=== PATIENT | male | born 1950 | race Hispanic/Latino ===

== ENCOUNTER 2018-07-09 12:07 | Day surgery (SDC) | payer MEDICARE ==
[2018-07-08 13:02] VITALS: BMI 24.2
[2018-07-09 13:04] VITALS: TEMP 98
[2018-07-09 13:14] LABS: BLOOD UREA NITROGEN 10 mg/dL (7-21); CALCIUM 9.5 mg/dL (8.4-10.5); GFR NON-AFRICAN AMERICAN > 60
[2018-07-09 13:23] LABS: PARTIAL THROMBOPLASTIN TIME 32.5 Seconds (25.1-36.5); PROTHROMBIN TIME 11.5 SECONDS (9.4-12.5)
[2018-07-09 13:25] LABS: GRAN % 56.1 % (50.0-68.0); HEMOGLOBIN 14.7 g/dL (14.0-18.0); MEAN CELL VOLUME 92.4 fl (80.0-105.0); MEAN CORPUSCULAR HEMOGLOBIN 32.1 pg (25.0-35.0); MEAN CORPUSCULAR HGB CONC 34.8 g/dl (31.0-37.0); MEAN PLATELET VOLUME 9.2 fl (7.0-11.0); RBC 4.58 10^6/uL (3.5-6.1); RED CELL DISTRIBUTION WIDTH 12.1 % (11.5-14.5); WHITE BLOOD COUNT 8.1 10^3/ul (4.5-11.0)
[2018-07-09 13:26] LABS: BASO # 0.02 K/mm3 (0.0-2.0); BASO % 0.2 % (0.0-3.0); EOS # 0.2 (0.0-0.7); EOS % 2.2 % (1.5-5.0); GRAN # 4.56 (1.4-6.5); LYMPH # 2.8 (1.2-3.4); LYMPH % 34.4 % (22.0-35.0); MONO # 0.6 (0.1-0.6); MONO % 7.1 % (1.0-6.0)
[2018-07-09] MEDS ORDERED: Lidocaine 1% Inj (20ml) ONE (13:42)
[2018-07-09] MEDS ORDERED: Midazolam 2 MG/2 ML VIAL ONE ×2 (13:42→13:54)
[2018-07-09] MEDS ORDERED: Oxycodone/Acetaminophen 5/325 mg Tab PO PRN (14:07)
[2018-07-09] MEDS ORDERED: Sodium Chloride 0.45% 1,000 ML IV SCH (14:15)
[2018-07-09] MEDS ORDERED: Midazolam 2 MG/2 ML VIAL IVP ONE (14:44)
[2018-07-09 15:18] VITALS: RESP 18; O2SAT 96
--- NOTE | 2018-07-09 15:29 | RAD ---
Date of service: 07/09/2018 HISTORY: RLL lung bx COMPARISON: No prior. FINDINGS: LUNGS: No active pulmonary disease. PLEURA: No significant pleural effusion identified, no pneumothorax apparent. CARDIOVASCULAR: Normal. OSSEOUS STRUCTURES: Sternal wires VISUALIZED UPPER ABDOMEN: Normal. OTHER FINDINGS: None. IMPRESSION: No active disease.
[2018-07-09 16:06] VITALS: BP 144/70; PULSE 76
--- NOTE | 2018-07-09 18:42 | CT ---
PROCEDURE: CT guided right lower lobe lung biopsy. HISTORY: Smoker. 2.1 cm noncalcified spiculated right lower lobe lung mass. Evaluate for malignancy. PHYSICIAN(S): Silas Flores MD. TECHNIQUE: The relative risks and indications of the procedure were explained to the patient and consent obtained. The patient was placed prone on the CT scanner and preliminary images through the lower lungs obtained. Conscious sedation and monitoring were provided throughout the procedure by a nurse. A 2.1 cm spiculated mass is noted in the right lower lobe medially. A right posterior approach was selected and the area prepped and draped in the usual sterile fashion. 1% Xylocaine was used to anesthetize the skin and soft tissues. A 18 gauge guiding needle was advanced into the 2.1 cm right lower lobe lung mass. Its position was confirmed with CT. Using coaxial technique, multiple core biopsies were obtained. The postprocedure images show no evidence of large pneumothorax or significant hemorrhage.. IMPRESSION: 1. CT-guided right lower lobe lung biopsy as described above.
== END 2018-07-09 16:05 | disposition home or self-care (01) ==
LOC: SDS 12:07
PROVIDERS: ATTEND Radiology Vascular & Interventional Radiology
DX: C7A.090 Malignant carcinoid tumor of the bronchus and lung (principal); I10 Essential (primary) hypertension; I25.10 Atherosclerotic heart disease of native coronary artery without angina pectoris; J43.9 Emphysema, unspecified; E11.9 Type 2 diabetes mellitus without complications; Z88.0 Allergy status to penicillin; Z91.040 Latex allergy status
CPT/HCPCS: 32405; 36415; 71045; 77012; 80048; 85025; 85610; 85730; 88305; 99152; J2250; J2405; J3010; J7030

== ENCOUNTER 2018-11-29 17:38 | Inpatient (IN) | payer MEDICARE ==
[2018-11-29] MEDS ORDERED: Sodium Chloride 0.9% 1,000 ML IV STA (18:13)
--- NOTE | 2018-11-29 18:37 | ED PDOC ---
Arrival/HPI - General Chief Complaint: Dizziness/Lightheaded Time Seen by Provider: 11/29/18 17:46 Historian: Patient - History of Present Illness Narrative History of Present Illness (Text): 11/29/18 18:23 68 yo M reports with past medical history of diabetes, high cholesterol, lung cancer s/p lobectomy, on chemo, quadruple bypass, and left carotid stent presents to the emergency room having having a near syncopal episode at home. Patient states that he was sitting on a chair when he started feeling clammy and diaphoretic, he states that he went to stand up and felt lightheaded, he notified his who then checked his blood pressure several times, states that his blood pressure was 66/33, his family called the ambulance. Otherwise: (-) trauma, (-) headache, (-) tinnitus, (-) hearing loss, (-) chest pain, (-) dyspnea, (-) fever, (-) URI, (-) abdominal pain, (-) vomiting, (-) diarrhea, (-) syncope, (-) GI bleeding. PMD Liliana FritzCamanche) Cardio Sudheer Past Medical History - Provider Review Nursing Documentation Reviewed: Yes - Infectious Disease Hx of Infectious Diseases: None - Tetanus Immunization Tetanus Immunization: Unknown - Cardiac Hx Pacemaker: No - Neurological Hx Paralysis: No - Endocrine/Metabolic Hx Endocrine Disorders: (DM) - Hematological/Oncological Hx Blood Transfusions: No Hx Blood Transfusion Reaction: No - Musculoskeletal/Rheumatological Hx Musculoskeletal Disorders: No - Gastrointestinal Hx Diverticulitis: Yes - Psychiatric Hx Emotional Abuse: No Hx Physical Abuse: No Hx Substance Use: No - Surgical History Hx Cardiac Catheterization: Yes Hx Cholecystectomy: Yes - Anesthesia Hx Anesthesia: Yes Hx Anesthesia Reactions: No Hx Malignant Hyperthermia: No - Suicidal Assessment Feels Threatened In Home Enviroment: No Family/Social History - Physician Review Nursing Documentation Reviewed: Yes Family/Social History: No Known Family HX, Unknown Family HX Smoking Status: ocassional Hx Alcohol Use: No Hx Substance Use: No Hx Substance Use Treatment: Yes (occasional) Allergies/Home Meds Allergies/Adverse Reactions: Allergies latex Allergy (Severe, Verified 08/15/16 08:54) ANAPHYLAXIS Penicillins Allergy (Severe, Verified 08/15/16 08:54) ANAPHYLAXIS GELS USED FOR PROCEDURES Allergy (Severe, Uncoded 07/08/18 13:04) RASH/SWELLING METAL Allergy (Intermediate, Uncoded 08/15/16 08:55) SWELLING, VARIOUS REACTIONS Home Medications: Home Meds Medication Instructions Recorded Confirmed Metformin HCl [Metformin] 1,000 mg PO BID 09/07/13 07/09/18 Aspirin [Ecotrin] 81 mg PO QAM 08/15/16 07/09/18 Clopidogrel [Plavix] 75 mg PO QAM 08/15/16 07/09/18 Simvastatin 80 mg PO QAM 08/15/16 07/09/18 Review of Systems - Review of Systems Constitutional: absent: Fatigue, Fevers Respiratory: absent: SOB, Cough Cardiovascular: absent: Chest Pain, Palpitations Gastrointestinal: absent: Abdominal Pain, Diarrhea, Nausea, Vomiting Genitourinary Male: absent: Dysuria, Frequency, Hematuria Musculoskeletal: absent: Arthralgias, Neck Pain Skin: absent: Rash, Pruritis Neurological: Dizziness. absent: Headache Physical Exam - Physical Exam Narrative Physical Exam (Text): 11/29/18 18:38 GENERAL APPEARANCE: Patient is awake, alert, oriented x 3, in no acute distress. SKIN: Warm, dry; (-) cyanosis. HEAD: (-) scalp swelling or tenderness. EYES: (-) conjunctival pallor. ENMT: TMs normal. Mucous membranes moist. NECK: (-) tenderness, (-) stiffness, (-) lymphadenopathy. Carotids: (-) bruit. CHEST AND RESPIRATORY: (-) rales, (-) rhonchi, (-) wheezes; breath sounds equal bilaterally. HEART AND CARDIOVASCULAR: (-) irregularity; (-) murmur, (-) gallop. ABDOMEN AND GI: Soft; (-) distention, (-) tenderness, (-) rebound, (-) guarding, (-) palpable masses, (-) flank tenderness. EXTREMITIES: (-) deformity; (+) 1+ pitting edema. Distal pulses: present. NEURO AND PSYCH: Mental status as above. marketing communications associate: (-) nystagmus; Pupils equal & reactive, EOMI, (-) facial asymmetry; (-) dysarthria; tongue and uvula midline. Strength symmetric. Vital Signs Temp Pulse Resp BP Pulse Ox 11/29/18 17:38 97.8 F 73 18 114/51 L 98 Medical Decision Making ED Course and Treatment: 11/29/18 18:40 Plan: -- Labs -- IV fluids -- Urinalysis -- EKG -- CXR -- Reassess and disposition -- CT head EKG: NSR at 76 bpm, (-) acute ST changes, as read by PA. CXR : +lobectomy to the RLL, otherwise NAD, as read by PA. Rapid flu : (-) UA : (-) infection Labs : wbc 52, trop (-), bnp nl, d-dimer (-), rest of the labs wnl. US doppler b/l LE : (-) DVT. On reevaluation, patient reports no headache, dizziness, CP, back pain or SOB. On exam, patient remains awake alert and oriented 3 in no acute distress. Diagnostic results d/w the patient and his . Repeat VS : P 70 BP 125/58 R 19 O2sat 98%RA. Case d/w Dr. Friedman, agrees with plan for observation with consults to Dr. rGegorio and Dr. Willard. 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 VENTRICLES: There is generalized parenchymal atrophy noted as demonstrated by symmetrical dilatation of ventricles and sulci. ORBITS: The orbits are unremarkable. SINUSES AND MASTOIDS: The paranasal sinuses and mastoid air cells are clear. BONES: No fracture. SOFT TISSUES: Unremarkable. MISCELLANEOUS: No acute intracranial pathology. IMPRESSION: 1. There is generalized parenchymal atrophy noted as demonstrated by symmetrical dilatation of ventricles and sulci. 2. 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 3. No acute intracranial pathology. Electronically signed on Nov 29, 2018 8:59:30 PM EST by: Boyd Blue M.D., CHERRY Certified By [facility] & [facility] Fellowship Trained MRI and CT Specialist Radiology Orders: 11/29/18 18:11 CHEST PORTABLE [RAD] Stat 11/29/18 18:13 HEAD W/O CONTRAST [CT] Stat Receiver Bulk System: Radiologist - Medication Orders Current Medication Orders: Sodium Chloride (Sodium Chloride 0.9%) 1,000 mls @ 500 mls/hr IV .Q2H STA Stop: 11/29/18 20:12 - PA / REGISTERED NURSE OBSTETRICS / Resident Statement /DO has reviewed & agrees with the documentation as recorded. Disposition/Present on Arrival - Present on Arrival Any Indicators Present on Arrival: No History of DVT/PE: No History of Uncontrolled Diabetes: No Urinary Catheter: No History of Decub. Ulcer: No History Surgical Site Infection Following: None - Disposition Have Diagnosis and Disposition been Completed?: Yes Diagnosis: Near syncope Disposition: HOSPITALIZED Disposition Time: 21:15 Patient Plan: Observation Patient Problems: Current Active Problems Problem Status Onset Near syncope Acute Condition: STABLE
[2018-11-29 19:38] LABS: ALB/GLOB RATIO 1.6 (1.1-1.8); ALBUMIN 3.8 g/dL (3.0-4.8); ALT/SGPT 27 U/L (7-56); AST/SGOT 17 U/L (17-59); BLOOD UREA NITROGEN 21 mg/dL (7-21); CALCIUM 9.1 mg/dL (8.4-10.5); GFR NON-AFRICAN AMERICAN > 60
[2018-11-29 19:41] LABS: BASO # 0.02 K/mm3 (0.0-2.0); HEMOGLOBIN 10.2 g/dL (14.0-18.0); LYMPH # 1.6 (1.2-3.4); MEAN CORPUSCULAR HEMOGLOBIN 32.4 pg (25.0-35.0); MEAN CORPUSCULAR HGB CONC 34.5 g/dl (31.0-37.0); MEAN PLATELET VOLUME 9.1 fl (7.0-11.0); MONO # 0.2 (0.1-0.6); MONO % 0.3 % (1.0-6.0); PLATELET COUNT 244 10^3/uL (120.0-450.0); RBC 3.15 10^6/uL (3.5-6.1); RED CELL DISTRIBUTION WIDTH 14.5 % (11.5-14.5)
[2018-11-29 19:44] LABS: WHITE BLOOD COUNT 52.6 10^3/uL (4.5-11.0)
[2018-11-29 19:45] LABS: INR 1.1; PARTIAL THROMBOPLASTIN TIME 26.2 Seconds (26.9-38.3); PROTHROMBIN TIME 12.2 SECONDS (9.4-12.5)
[2018-11-29 19:50] LABS: B-TYPE NATRIURETIC PEPTIDE 316 pg/mL (0-450); TROPONIN I < 0.01 ng/mL
[2018-11-29 20:28] LABS: BAND 2 % (0-2); HYPOCHROMIA 2+; LYMPHOCYTE 3 % (22.0-35.0); NEUTROPHIL 95 % (50.0-70.0); PLATELET ESTIMATE NORMAL (NORMAL)
[2018-11-29 20:29] LABS: ROULEAU 2+; TARGET CELLS SLIGHT; TOXIC GRANULATION 2+
[2018-11-29 21:17] LABS: URINE BILIRUBIN NEGATIVE (NEGATIVE); URINE BLOOD NEGATIVE (NEGATIVE); URINE GLUCOSE (UA) 250 mg/dL (NEGATIVE); URINE LEUKOCYTE ESTERASE NEGATIVE Leu/uL (NEGATIVE); URINE PROTEIN TRACE mg/dL (<30 mg/dL); URINE UROBILINOGEN 0.2 E.U./dL (<1 E.U./dL)
[2018-11-29 21:20] LABS: URINE APPEARANCE CLEAR (CLEAR); URINE COLOR YELLOW (YELLOW)
--- NOTE | 2018-11-30 05:43 | CP.PCM.HP ---
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 Patient states that that at the time of the episode he was sitting in a chair when he started feeling very lightheaded, diaphoretic, and with cold sweats. He denied any LOC, fall, seizure-like activity. His checked the blood pressure at the time which was 66/33. At this time she called the ED. Patient denied any headache, dizziness, chest pain, palpitations, SOB, cough, abd pain, nausea, vomiting, bowel/bladder complaints, pain/swelling in his legs b/l. PMHx: CABG, DM2, HLD, small cell lung ca s/p lobectomy in August 2018, with 4 rounds of chemotherapy most recently received last , and left carotid stent PSurgHx: Lobectomy in August 2018, and CABG, and left carotid stent placement ALL: To latex and penicillin SocHx: Former heavy smoker, denies any drinking or recreational drug use; lives at home with and daughter; ambulates with no assistance and completes all ADLs FamHx: [place] in father; brother with CVA; sister with cancer [patient unsure of type] PMD: Condo Onc: Early ([place]) Cardio: Sudheer Present on Admission - Present on Admission Any Indicators Present on Admission: No Review of Systems - Review of Systems All systems: reviewed and no additional remarkable complaints except Review of Systems: as per HPI Past Patient History - Infectious Disease Hx of Infectious Diseases: None - Tetanus Immunizations Tetanus Immunization: Unknown - Past Social History Smoking Status: ocassional - CARDIAC Hx Pacemaker: No - NEUROLOGICAL Hx Paralysis: No - ENDOCRINE/METABOLIC Hx Endocrine Disorders: (DM) - HEMATOLOGICAL/ONCOLOGICAL Hx Blood Transfusions: No Hx Blood Transfusion Reaction: No - MUSCULOSKELETAL/RHEUMATOLOGICAL Hx Musculoskeletal Disorders: No - GASTROINTESTINAL Hx Diverticulitis: Yes - PSYCHIATRIC Hx Emotional Abuse: No Hx Physical Abuse: No Hx Substance Use: No - SURGICAL HISTORY Hx Cardiac Catheterization: Yes Hx Cholecystectomy: Yes - ANESTHESIA Hx Anesthesia: Yes Hx Anesthesia Reactions: No Hx Malignant Hyperthermia: No Meds Allergies/Adverse Reactions: Allergies Allergy/AdvReac Type Severity Reaction Status Date / Time latex Allergy Severe ANAPHYLAXIS Verified 08/15/16 08:54 Penicillins Allergy Severe ANAPHYLAXIS Verified 08/15/16 08:54 GELS USED FOR PROCEDURES Allergy Severe RASH/SWELLI Uncoded 07/08/18 13:04 NG METAL Allergy Intermediate SWELLING, Uncoded 08/15/16 08:55 VARIOUS REACTIONS Physical Exam - Constitutional Appears: Non-toxic, No Acute Distress - Head Exam Head Exam: ATRAUMATIC, NORMAL INSPECTION, NORMOCEPHALIC - Eye Exam Eye Exam: EOMI, Normal appearance. absent: Conjunctival injection, Scleral icterus - ENT Exam ENT Exam: Mucous Membranes Moist - Neck Exam Neck exam: Negative for: Lymphadenopathy - Respiratory Exam Respiratory Exam: Clear to Auscultation Bilateral, NORMAL BREATHING PATTERN. ab sent: Accessory Muscle Use, Rales, Rhonchi, Wheezes, Respiratory Distress Additional comments: port in L upper chest wall - Cardiovascular Exam Cardiovascular Exam: REGULAR RHYTHM, +S1, +S2 - GI/Abdominal Exam GI & Abdominal Exam: Normal Bowel Sounds, Soft. absent: Firm, Guarding, Rigid, Tenderness - Rectal Exam Rectal Exam: Deferred - Extremities Exam Extremities exam: Positive for: normal inspection, pedal pulses present. Negative for: pedal edema, tenderness - Back Exam Back exam: NORMAL INSPECTION. absent: rash noted - Neurological Exam Neurological exam: Alert, CN II-XII Intact, Oriented x3 - Psychiatric Exam Psychiatric exam: Normal Affect, Normal Mood - Skin Skin Exam: Dry, Intact, Normal Color Results - Vital Signs Recent Vital Signs: Last Vital Signs Temp 97.8 F 11/29/18 17:38 Pulse 69 11/30/18 05:11 Resp 16 11/30/18 05:11 BP 137/62 11/30/18 05:11 Pulse Ox 98 11/30/18 05:11 - Labs Result Diagrams: 11/30/18 07:00 11/30/18 07:00 Labs: Laboratory Results - last 24 hr 11/29/18 11/29/18 11/29/18 19:08 19:08 19:08 WBC 52.6 H* RBC 3.15 L Hgb 10.2 L D Hct 29.6 L MCV 94.0 MCH 32.4 MCHC 34.5 RDW 14.5 Plt Count 244 MPV 9.1 Neut % (Auto) 96.7 H Lymph % (Auto) 3.0 L [place] % (Auto) 0.3 L Eos % (Auto) 0.0 L Baso % (Auto) 0.0 Lymph # (Auto) 1.6 [place] # (Auto) 0.2 Eos # (Auto) 0.0 Baso # (Auto) 0.02 Absolute Neuts (auto) 50.77 H Neutrophils % (Manual) 95 H Band Neutrophils % 2 Lymphocytes % (Manual) 3 L Monocytes % (Manual) TEST NOT PERFORMED Toxic Granulation 2+ Platelet Evaluation Normal Hypochromasia 2+ Target Cells Slight Rouleaux 2+ PT 12.2 INR 1.10 APTT 26.2 L D-Dimer, Quantitative Sodium 134 Potassium 4.4 Chloride 102 Carbon Dioxide 23 Anion Gap 13 BUN 21 Creatinine 0.7 L Est GFR ( Amer) > 60 Est GFR (Non-Af Amer) > 60 Random Glucose 192 H Calcium 9.1 Magnesium 1.5 L Total Bilirubin 0.7 AST 17 ALT 27 Alkaline Phosphatase 62 Lactate Dehydrogenase 375 Total Creatine Kinase 23 L Troponin I < 0.01 NT-Pro-B Natriuret Pep 316 Total Protein 6.2 Albumin 3.8 Globulin 2.4 Albumin/Globulin Ratio 1.6 Urine Color Urine Appearance Urine pH Ur Specific [place] Urine Protein Urine Glucose (UA) Urine Ketones Urine Blood Urine Nitrate Urine Bilirubin Urine Urobilinogen Ur Leukocyte Esterase Urine RBC Urine WBC Ur Epithelial Cells Influenza Typ A,B (EIA) 11/29/18 11/29/18 11/29/18 19:08 20:35 21:30 WBC RBC Hgb Hct MCV MCH MCHC RDW Plt Count MPV Neut % (Auto) Lymph % (Auto) [place] % (Auto) Eos % (Auto) Baso % (Auto) Lymph # (Auto) [place] # (Auto) Eos # (Auto) Baso # (Auto) Absolute Neuts (auto) Neutrophils % (Manual) Band Neutrophils % Lymphocytes % (Manual) Monocytes % (Manual) Toxic Granulation Platelet Evaluation Hypochromasia Target Cells Rouleaux PT INR APTT D-Dimer, Quantitative 217 Sodium Potassium Chloride Carbon Dioxide Anion Gap BUN Creatinine Est GFR ( Amer) Est GFR (Non-Af Amer) Random Glucose Calcium Magnesium Total Bilirubin AST ALT Alkaline Phosphatase Lactate Dehydrogenase Total Creatine Kinase Troponin I NT-Pro-B Natriuret Pep Total Protein Albumin Globulin Albumin/Globulin Ratio Urine Color Yellow Urine Appearance Clear Urine pH 6.0 Ur Specific [place] >= 1.030 Urine Protein Trace H Urine Glucose (UA) 250 H Urine Ketones Negative Urine Blood Negative Urine Nitrate Negative Urine Bilirubin Negative Urine Urobilinogen 0.2 Ur Leukocyte Esterase Negative Urine RBC TEST NOT PERFORMED Urine WBC 2 - 5 Ur Epithelial Cells 6 - 8 H Influenza Typ A,B (EIA) Negative for flu a/b 11/29/18 22:25 WBC RBC Hgb Hct MCV MCH MCHC RDW Plt Count MPV Neut % (Auto) Lymph % (Auto) [place] % (Auto) Eos % (Auto) Baso % (Auto) Lymph # (Auto) [place] # (Auto) Eos # (Auto) Baso # (Auto) Absolute Neuts (auto) Neutrophils % (Manual) Band Neutrophils % Lymphocytes % (Manual) Monocytes % (Manual) Toxic Granulation Platelet Evaluation Hypochromasia Target Cells Rouleaux PT INR APTT D-Dimer, Quantitative Sodium Potassium Chloride Carbon Dioxide Anion Gap BUN Creatinine Est GFR ( Amer) Est GFR (Non-Af Amer) Random Glucose Calcium Magnesium Total Bilirubin AST ALT Alkaline Phosphatase Lactate Dehydrogenase Total Creatine Kinase Troponin I < 0.01 NT-Pro-B Natriuret Pep Total Protein Albumin Globulin Albumin/Globulin Ratio Urine Color Urine Appearance Urine pH Ur Specific [place] Urine Protein Urine Glucose (UA) Urine Ketones Urine Blood Urine Nitrate Urine Bilirubin Urine Urobilinogen Ur Leukocyte Esterase Urine RBC Urine WBC Ur Epithelial Cells Influenza Typ A,B (EIA) Assessment & Plan - Assessment and Plan (Free Text) Assessment: 1. Near syncopal episode 2. Marked leukocytosis 3. Normocytic anemia 4. CAD s/p CABG 5. HLD 6. DM2 7. Small cell lung ca s/p lobectomy on chemo 8. L cartoid A stent Plan: Patient admitted to [facility] for further management. Patient's head CT showed generalized parenchymal atrophy noted as demonstrated by symmetrical dilatation of ventricles and sulci and chronic periventricular and subcortical microvascular disease. Will f/u u/s carotids. U/S LE were done in the ER which were negative for DVT. Cardio and ID were consulted. Blood and urine cultures ordered to f/u. Patient's UA and flu were negative. CXR revealed small R effusions with mild basilar atelectasis. CT Abd/pelvis ordered to r/o intra-abd infx- will f/u. Echo ordered to r/o vegetations- will f/u. In light of anemia, patient has iron studies ordered- will f/u. Continue home meds ASA ,Plavix, lipitor, and toprol for CAD and HLD. Patient's home metformin on hold and patient on RISS low at this time. DVT ppx in place. Will continue to monitor patient at this time. Discussed with Dr. Elder Branham PGY3 <Malik Friedman S - Last Filed: 11/30/18 19:10> Results - Vital Signs Recent Vital Signs: Last Vital Signs Temp 98.0 F 11/30/18 16:20 Pulse 86 11/30/18 16:20 Resp 18 11/30/18 16:20 BP 138/77 11/30/18 16:20 Pulse Ox 100 11/30/18 16:20 - Labs Result Diagrams: 11/30/18 07:00 11/30/18 07:00 Labs: Laboratory Results - last 24 hr 11/29/18 11/29/18 11/29/18 19:08 19:08 19:08 WBC 52.6 H* RBC 3.15 L Hgb 10.2 L D Hct 29.6 L MCV 94.0 MCH 32.4 MCHC 34.5 RDW 14.5 Plt Count 244 MPV 9.1 Neut % (Auto) 96.7 H Lymph % (Auto) 3.0 L [place] % (Auto) 0.3 L Eos % (Auto) 0.0 L Baso % (Auto) 0.0 Lymph # (Auto) 1.6 [place] # (Auto) 0.2 Eos # (Auto) 0.0 Baso # (Auto) 0.02 Absolute Neuts (auto) 50.77 H Neutrophils % (Manual) 95 H Band Neutrophils % 2 Lymphocytes % (Manual) 3 L Monocytes % (Manual) TEST NOT PERFORMED Toxic Granulation 2+ Platelet Evaluation Normal Hypochromasia 2+ Target Cells Slight Rouleaux 2+ Retic Count PT 12.2 INR 1.10 APTT 26.2 L D-Dimer, Quantitative Sodium 134 Potassium 4.4 Chloride 102 Carbon Dioxide 23 Anion Gap 13 BUN 21 Creatinine 0.7 L Est GFR ( Amer) > 60 Est GFR (Non-Af Amer) > 60 POC Glucose (mg/dL) Random Glucose 192 H Hemoglobin A1c Calcium 9.1 Phosphorus Magnesium 1.5 L Iron TIBC % Saturation Transferrin Ferritin Total Bilirubin 0.7 AST 17 ALT 27 Alkaline Phosphatase 62 Lactate Dehydrogenase 375 Total Creatine Kinase 23 L Troponin I < 0.01 NT-Pro-B Natriuret Pep 316 Total Protein 6.2 Albumin 3.8 Globulin 2.4 Albumin/Globulin Ratio 1.6 Triglycerides Cholesterol LDL Cholesterol Direct HDL Cholesterol Vitamin B12 Folate Free T4 TSH 3rd Generation Urine Color Urine Appearance Urine pH Ur Specific [place] Urine Protein Urine Glucose (UA) Urine Ketones Urine Blood Urine Nitrate Urine Bilirubin Urine Urobilinogen Ur Leukocyte Esterase Urine RBC Urine WBC Ur Epithelial Cells Influenza Typ A,B (EIA) 11/29/18 11/29/18 11/29/18 19:08 20:35 21:30 WBC RBC Hgb Hct MCV MCH MCHC RDW Plt Count MPV Neut % (Auto) Lymph % (Auto) [place] % (Auto) Eos % (Auto) Baso % (Auto) Lymph # (Auto) [place] # (Auto) Eos # (Auto) Baso # (Auto) Absolute Neuts (auto) Neutrophils % (Manual) Band Neutrophils % Lymphocytes % (Manual) Monocytes % (Manual) Toxic Granulation Platelet Evaluation Hypochromasia Target Cells Rouleaux Retic Count PT INR APTT D-Dimer, Quantitative 217 Sodium Potassium Chloride Carbon Dioxide Anion Gap BUN Creatinine Est GFR ( Amer) Est GFR (Non-Af Amer) POC Glucose (mg/dL) Random Glucose Hemoglobin A1c Calcium Phosphorus Magnesium Iron TIBC % Saturation Transferrin Ferritin Total Bilirubin AST ALT Alkaline Phosphatase Lactate Dehydrogenase Total Creatine Kinase Troponin I NT-Pro-B Natriuret Pep Total Protein Albumin Globulin Albumin/Globulin Ratio Triglycerides Cholesterol LDL Cholesterol Direct HDL Cholesterol Vitamin B12 Folate Free T4 TSH 3rd Generation Urine Color Yellow Urine Appearance Clear Urine pH 6.0 Ur Specific [place] >= 1.030 Urine Protein Trace H Urine Glucose (UA) 250 H Urine Ketones Negative Urine Blood Negative Urine Nitrate Negative Urine Bilirubin Negative Urine Urobilinogen 0.2 Ur Leukocyte Esterase Negative Urine RBC TEST NOT PERFORMED Urine WBC 2 - 5 Ur Epithelial Cells 6 - 8 H Influenza Typ A,B (EIA) Negative for flu a/b 11/29/18 11/30/18 11/30/18 22:25 07:00 07:00 WBC 51.3 H* RBC 3.31 L Hgb 10.6 L Hct 31.3 L MCV 94.6 MCH 32.0 MCHC 33.9 RDW 14.6 H Plt Count 204 MPV 9.1 Neut % (Auto) Lymph % (Auto) [place] % (Auto) Eos % (Auto) Baso % (Auto) Lymph # (Auto) [place] # (Auto) Eos # (Auto) Baso # (Auto) Absolute Neuts (auto) Neutrophils % (Manual) Band Neutrophils % Lymphocytes % (Manual) Monocytes % (Manual) Toxic Granulation Platelet Evaluation Hypochromasia Target Cells Rouleaux Retic Count PT INR APTT D-Dimer, Quantitative Sodium 138 Potassium 4.5 Chloride 104 Carbon Dioxide 26 Anion Gap 12 BUN 18 Creatinine 0.6 L Est GFR ( Amer) > 60 Est GFR (Non-Af Amer) > 60 POC Glucose (mg/dL) Random Glucose 158 H Hemoglobin A1c Calcium 9.3 Phosphorus 3.5 Magnesium 1.6 L Iron TIBC % Saturation Transferrin Ferritin Total Bilirubin 0.5 AST 18 ALT 19 Alkaline Phosphatase 67 Lactate Dehydrogenase Total Creatine Kinase Troponin I < 0.01 NT-Pro-B Natriuret Pep Total Protein 6.5 Albumin 3.9 Globulin 2.6 Albumin/Globulin Ratio 1.5 Triglycerides Cholesterol LDL Cholesterol Direct HDL Cholesterol Vitamin B12 Folate Free T4 TSH 3rd Generation Urine Color Urine Appearance Urine pH Ur Specific [place] Urine Protein Urine Glucose (UA) Urine Ketones Urine Blood Urine Nitrate Urine Bilirubin Urine Urobilinogen Ur Leukocyte Esterase Urine RBC Urine WBC Ur Epithelial Cells Influenza Typ A,B (EIA) 11/30/18 11/30/18 11/30/18 07:00 07:00 07:00 WBC RBC Hgb Hct MCV MCH MCHC RDW Plt Count MPV Neut % (Auto) Lymph % (Auto) [place] % (Auto) Eos % (Auto) Baso % (Auto) Lymph # (Auto) [place] # (Auto) Eos # (Auto) Baso # (Auto) Absolute Neuts (auto) Neutrophils % (Manual) Band Neutrophils % Lymphocytes % (Manual) Monocytes % (Manual) Toxic Granulation Platelet Evaluation Hypochromasia Target Cells Rouleaux Retic Count PT INR APTT D-Dimer, Quantitative Sodium Potassium Chloride Carbon Dioxide Anion Gap BUN Creatinine Est GFR ( Amer) Est GFR (Non-Af Amer) POC Glucose (mg/dL) Random Glucose Hemoglobin A1c 7.4 H Calcium Phosphorus Magnesium Iron TIBC % Saturation Transferrin Ferritin Total Bilirubin AST ALT Alkaline Phosphatase Lactate Dehydrogenase Total Creatine Kinase Troponin I NT-Pro-B Natriuret Pep Total Protein Albumin Globulin Albumin/Globulin Ratio Triglycerides 72 Cholesterol 96 L LDL Cholesterol Direct 52 HDL Cholesterol 41 Vitamin B12 > 1000 H Folate 7.4 Free T4 0.98 TSH 3rd Generation 0.63 Urine Color Urine Appearance Urine pH Ur Specific [place] Urine Protein Urine Glucose (UA) Urine Ketones Urine Blood Urine Nitrate Urine Bilirubin Urine Urobilinogen Ur Leukocyte Esterase Urine RBC Urine WBC Ur Epithelial Cells Influenza Typ A,B (EIA) 11/30/18 11/30/18 11/30/18 13:38 13:38 13:38 WBC RBC Hgb Hct MCV MCH MCHC RDW Plt Count MPV Neut % (Auto) Lymph % (Auto) [place] % (Auto) Eos % (Auto) Baso % (Auto) Lymph # (Auto) [place] # (Auto) Eos # (Auto) Baso # (Auto) Absolute Neuts (auto) Neutrophils % (Manual) Band Neutrophils % Lymphocytes % (Manual) Monocytes % (Manual) Toxic Granulation Platelet Evaluation Hypochromasia Target Cells Rouleaux Retic Count 0.46 L PT INR APTT D-Dimer, Quantitative Sodium Potassium Chloride Carbon Dioxide Anion Gap BUN Creatinine Est GFR ( Amer) Est GFR (Non-Af Amer) POC Glucose (mg/dL) Random Glucose Hemoglobin A1c Calcium Phosphorus Magnesium Iron 234 H TIBC 277 % Saturation 85 H Transferrin 211.61 Ferritin Total Bilirubin AST ALT Alkaline Phosphatase Lactate Dehydrogenase Total Creatine Kinase Troponin I NT-Pro-B Natriuret Pep Total Protein Albumin Globulin Albumin/Globulin Ratio Triglycerides Cholesterol LDL Cholesterol Direct HDL Cholesterol Vitamin B12 Folate Free T4 TSH 3rd Generation Urine Color Urine Appearance Urine pH Ur Specific [place] Urine Protein Urine Glucose (UA) Urine Ketones Urine Blood Urine Nitrate Urine Bilirubin Urine Urobilinogen Ur Leukocyte Esterase Urine RBC Urine WBC Ur Epithelial Cells Influenza Typ A,B (EIA) 11/30/18 11/30/18 13:38 16:19 WBC RBC Hgb Hct MCV MCH MCHC RDW Plt Count MPV Neut % (Auto) Lymph % (Auto) [place] % (Auto) Eos % (Auto) Baso % (Auto) Lymph # (Auto) [place] # (Auto) Eos # (Auto) Baso # (Auto) Absolute Neuts (auto) Neutrophils % (Manual) Band Neutrophils % Lymphocytes % (Manual) Monocytes % (Manual) Toxic Granulation Platelet Evaluation Hypochromasia Target Cells Rouleaux Retic Count PT INR APTT D-Dimer, Quantitative Sodium Potassium Chloride Carbon Dioxide Anion Gap BUN Creatinine Est GFR ( Amer) Est GFR (Non-Af Amer) POC Glucose (mg/dL) 155 H Random Glucose Hemoglobin A1c Calcium Phosphorus Magnesium Iron TIBC % Saturation Transferrin Ferritin 247.0 Total Bilirubin AST ALT Alkaline Phosphatase Lactate Dehydrogenase Total Creatine Kinase Troponin I NT-Pro-B Natriuret Pep Total Protein Albumin Globulin Albumin/Globulin Ratio Triglycerides Cholesterol LDL Cholesterol Direct HDL Cholesterol Vitamin B12 Folate Free T4 TSH 3rd Generation Urine Color Urine Appearance Urine pH Ur Specific [place] Urine Protein Urine Glucose (UA) Urine Ketones Urine Blood Urine Nitrate Urine Bilirubin Urine Urobilinogen Ur Leukocyte Esterase Urine RBC Urine WBC Ur Epithelial Cells Influenza Typ A,B (EIA) Assessment & Plan - Assessment and Plan (Free Text) Plan: Pt seen and examined by me. I have reviewed the note of the medical safety director and I agree with it. I have discussed the assessment and plan with the resident. I have reviewed the medications and the last labs. Pt with dizziness and near syncope. He had a CT that was done and was negative for acute abnormalities. Pt is on ASA and Plavix for CAD. He will continue with Lipitor for dyslipidemia. Hold Metformin for now. Will need ID evaluation. Pt with high WCC and may be related to medications that he may have received. Will need to r/o infection. Pt does not look toxic. Will be on ISS with coverage. Will get cardio on consult.
[2018-11-30 07:27] LABS: HEMOGLOBIN 10.6 g/dL (14.0-18.0); MEAN CELL VOLUME 94.6 fl (80.0-105.0); MEAN CORPUSCULAR HGB CONC 33.9 g/dl (31.0-37.0); MEAN PLATELET VOLUME 9.1 fl (7.0-11.0); RBC 3.31 10^6/uL (3.5-6.1); RED CELL DISTRIBUTION WIDTH 14.6 % (11.5-14.5)
[2018-11-30 07:40] LABS: WHITE BLOOD COUNT 51.3 10^3/uL (4.5-11.0)
[2018-11-30 07:43] LABS: HDL CHOLESTEROL 41 mg/dL (29-60)
[2018-11-30 07:53] LABS: LDL CHOLESTEROL 52 mg/dL (0-129)
--- NOTE | 2018-11-30 07:57 | CT ---
Date of service: 11/29/2018 PROCEDURE: CT HEAD WITHOUT CONTRAST. HISTORY: near syncope COMPARISON: Head CT 09/07/2013. TECHNIQUE: Axial computed tomography images were obtained through the head/brain without intravenous contrast. Radiation dose: Total exam DLP = 993.37 mGy-cm. This CT exam was performed using one or more of the following dose reduction techniques: Automated exposure control, adjustment of the mA and/or kV according to patient size, and/or use of iterative reconstruction technique. FINDINGS: HEMORRHAGE: No intracranial hemorrhage. BRAIN: Good corticomedullary differentiation is seen. Reiterated diffuse cerebral atrophy and chronic microangiopathy. Small chronic lacune is again seen the right external capsule. No suspicious extra-axial fluid collection is identified and the midline brain anatomy appears grossly nonfocal as imaged. No mass effect identified. Moderate atherosclerotic plaque is appreciate bilateral cavernous and intra canalicular internal carotid artery segments bilaterally. VENTRICLES: Unremarkable. No hydrocephalus. CALVARIUM: Unremarkable. PARANASAL SINUSES: Unremarkable as visualized. No significant inflammatory changes. MASTOID AIR CELLS: Unremarkable as visualized. No inflammatory changes. OTHER FINDINGS: None. IMPRESSION: Stable age related neuro degenerative change are identified with chronic lacune again noted at the right external capsule. Exam otherwise unremarkable. Follow-up CT or MRI are available if clinically warranted. Concordant preliminary report from Debra, 11/29/2017 8:59 p.m..
[2018-11-30 08:02] LABS: FREE T4 0.98 ng/dL (0.78-2.19)
--- NOTE | 2018-11-30 08:13 | RAD ---
Date of service: 11/29/2018 HISTORY: Near syncope COMPARISON: Comparison made with prior study dated 07/09/2018 FINDINGS: No change left IJ MediPort with tip in the SVC/RA junction LUNGS: There is a small right-sided effusion with presumed mild right basilar atelectasis. Suspect minimal left basilar atelectasis and/or scarring PLEURA: As above. No pneumothorax apparent. CARDIOVASCULAR: Heart remains enlarged. Sternotomy wires again noted. No significant aortic atherosclerotic calcification. No pulmonary vascular congestion. OSSEOUS STRUCTURES: No significant abnormalities. VISUALIZED UPPER ABDOMEN: Normal. OTHER FINDINGS: None. IMPRESSION: There is a small right-sided effusion with presumed mild right basilar atelectasis. Suspect minimal left basilar atelectasis and/or scarring
[2018-11-30] MEDS: Insulin Lispro (humaLOG) LOW Coverage SC SCH ×4 (08:25→22:53)
[2018-11-30 08:27] LABS: ALB/GLOB RATIO 1.5 (1.1-1.8); ALBUMIN 3.9 g/dL (3.0-4.8); ALT/SGPT 19 U/L (7-56); AST/SGOT 18 U/L (17-59); BLOOD UREA NITROGEN 18 mg/dL (7-21); CALCIUM 9.3 mg/dL (8.4-10.5); GFR NON-AFRICAN AMERICAN > 60
[2018-11-30] MEDS: Aztreonam 2 Gm in NS 100mL 100 ML IVPB SCH ×4 (09:28→22:03)
--- NOTE | 2018-11-30 10:08 | CARD ---
APPROVED REPORT Date of service: 11/29/2018 EKG Measurement Heart [id number] <Conclusion> Normal sinus rhythm Normal ECG
[2018-11-30] MEDS: Vancomycin 1gm in NS 250ml 1 GM/250 ML BAG IVPB SCH ×2 (10:29→22:05)
[2018-11-30] MEDS: Magnesium Oxide 400 mg Tab UD PO SCH (12:12)
--- NOTE | 2018-11-30 12:56 | CP.PCM.CON ---
<Sukh Pierre - Last Filed: 11/30/18 12:53> History of Present Illness - History of Present Illness History of Present Illness: Infectious disease consult note: 68-year-old male with past medical history of diabetes, hyper cholesterolemia, small cell lung cancer status post lobectomy in August 2018, with 4 rounds of chemotherapy most recently received last , CABG, and left carotid stent presented to the ED following a near syncopal episode. Patient states that that at the time of the episode he was sitting in a chair when he started feeling very lightheaded, diaphoretic, and with cold sweats. His checked the blood pressure at the time which was 66/33. At this time she called the ED. Patient denies any falls or hitting his head.At this time patient states that he is feeling well and those episodes have subsided. ID was consulted for marked leukocytosis. 12 point ROS performed and negative other than stated above. PMH: As above PSH: Lobectomy in August 2018, and CABG, and left carotid stent placement Allergy: To latex and penicillin SH: Former heavy smoker, denies any drinking or recreational drug use FH: Denies Review of Systems - Review of Systems All systems: reviewed and no additional remarkable complaints except Past Patient History - Infectious Disease Hx of Infectious Diseases: None - Tetanus Immunizations Tetanus Immunization: Unknown - Past Social History Smoking Status: ocassional - CARDIAC Hx Pacemaker: No - NEUROLOGICAL Hx Paralysis: No - ENDOCRINE/METABOLIC Hx Endocrine Disorders: (DM) - HEMATOLOGICAL/ONCOLOGICAL Hx Blood Transfusions: No Hx Blood Transfusion Reaction: No - MUSCULOSKELETAL/RHEUMATOLOGICAL Hx Musculoskeletal Disorders: No - GASTROINTESTINAL Hx Diverticulitis: Yes - PSYCHIATRIC Hx Emotional Abuse: No Hx Physical Abuse: No Hx Substance Use: No - SURGICAL HISTORY Hx Cardiac Catheterization: Yes Hx Cholecystectomy: Yes - ANESTHESIA Hx Anesthesia: Yes Hx Anesthesia Reactions: No Hx Malignant Hyperthermia: No Meds Allergies/Adverse Reactions: Allergies Allergy/AdvReac Type Severity Reaction Status Date / Time latex Allergy Severe ANAPHYLAXIS Verified 08/15/16 08:54 Penicillins Allergy Severe ANAPHYLAXIS Verified 08/15/16 08:54 GELS USED FOR PROCEDURES Allergy Severe RASH/SWELLI Uncoded 07/08/18 13:04 NG METAL Allergy Intermediate SWELLING, Uncoded 08/15/16 08:55 VARIOUS REACTIONS - Medications Medications: Current Medications [facility]ir[facility] ([facility]) [facility] [place] Last Admin: 11/30/18 10:29 Dose: 81 mg Atorvastatin Calcium (Lipitor) 40 mg PO HS [facility] Clopidogrel Bisulfate (Plavix) 75 mg PO QAM [facility] Last Admin: 11/30/18 10:29 Dose: 75 mg Aztreonam (Azactam 2 Gm) 100 mls @ 100 mls/hr IVPB Q8 [facility]; Protocol Stop: 12/07/18 07:01 Last Admin: 11/30/18 09:28 Dose: 100 mls/hr Vancomycin HCl (Vancomycin 1gm) 1 gm in 250 mls @ 167 mls/hr IVPB Q12H [facility]; Protocol Last Admin: 11/30/18 10:29 Dose: 167 mls/hr Insulin Human Lispro (Humalog Low) 0 units SC ACHS [facility]; Protocol Last Admin: 11/30/18 08:25 Dose: Not Given Magnesium Oxide (Mag-Ox) 400 mg PO DAILY [facility] Last Admin: 11/30/18 12:12 Dose: 400 mg Physical Exam - Head Exam Head Exam: ATRAUMATIC, NORMOCEPHALIC - Eye Exam Eye Exam: EOMI - ENT Exam ENT Exam: Mucous Membranes Moist - Respiratory Exam Respiratory Exam: Clear to Auscultation Bilateral. absent: Rales, Wheezes - Cardiovascular Exam Cardiovascular Exam: REGULAR RHYTHM, +S1, +S2 - GI/Abdominal Exam GI & Abdominal Exam: Normal Bowel Sounds, Soft. absent: Tenderness - Extremities Exam Extremities exam: Negative for: calf tenderness, pedal edema - Neurological Exam Neurological exam: Alert, CN II-XII Intact, Oriented x3 - Psychiatric Exam Psychiatric exam: Normal Mood - Skin Skin Exam: Dry, Intact, Warm Results - Vital Signs Recent Vital Signs: Last Vital Signs Temp 97.8 F 11/29/18 17:38 Pulse 65 11/30/18 11:25 Resp 18 11/30/18 11:25 BP 139/59 L 11/30/18 11:25 Pulse Ox 98 11/30/18 11:25 - Labs Result Diagrams: 11/30/18 07:00 11/30/18 07:00 Labs: Laboratory Results - last 24 hr 11/29/18 11/29/18 11/29/18 19:08 19:08 19:08 WBC 52.6 H* RBC 3.15 L Hgb 10.2 L D Hct 29.6 L MCV 94.0 MCH 32.4 MCHC 34.5 RDW 14.5 Plt Count 244 MPV 9.1 Neut % (Auto) 96.7 H Lymph % (Auto) 3.0 L [place] % (Auto) 0.3 L Eos % (Auto) 0.0 L Baso % (Auto) 0.0 Lymph # (Auto) 1.6 [place] # (Auto) 0.2 Eos # (Auto) 0.0 Baso # (Auto) 0.02 Absolute Neuts (auto) 50.77 H Neutrophils % (Manual) 95 H Band Neutrophils % 2 Lymphocytes % (Manual) 3 L Monocytes % (Manual) TEST NOT PERFORMED Toxic Granulation 2+ Platelet Evaluation Normal Hypochromasia 2+ Target Cells Slight Rouleaux 2+ PT 12.2 INR 1.10 APTT 26.2 L D-Dimer, Quantitative Sodium 134 Potassium 4.4 Chloride 102 Carbon Dioxide 23 Anion Gap 13 BUN 21 Creatinine 0.7 L Est GFR ( Amer) > 60 Est GFR (Non-Af Amer) > 60 Random Glucose 192 H Hemoglobin A1c Calcium 9.1 Phosphorus Magnesium 1.5 L Total Bilirubin 0.7 AST 17 ALT 27 Alkaline Phosphatase 62 Lactate Dehydrogenase 375 Total Creatine Kinase 23 L Troponin I < 0.01 NT-Pro-B Natriuret Pep 316 Total Protein 6.2 Albumin 3.8 Globulin 2.4 Albumin/Globulin Ratio 1.6 Triglycerides Cholesterol LDL Cholesterol Direct HDL Cholesterol Free T4 TSH 3rd Generation Urine Color Urine Appearance Urine pH Ur Specific [place] Urine Protein Urine Glucose (UA) Urine Ketones Urine Blood Urine Nitrate Urine Bilirubin Urine Urobilinogen Ur Leukocyte Esterase Urine RBC Urine WBC Ur Epithelial Cells Influenza Typ A,B (EIA) 11/29/18 11/29/18 11/29/18 19:08 20:35 21:30 WBC RBC Hgb Hct MCV MCH MCHC RDW Plt Count MPV Neut % (Auto) Lymph % (Auto) [place] % (Auto) Eos % (Auto) Baso % (Auto) Lymph # (Auto) [place] # (Auto) Eos # (Auto) Baso # (Auto) Absolute Neuts (auto) Neutrophils % (Manual) Band Neutrophils % Lymphocytes % (Manual) Monocytes % (Manual) Toxic Granulation Platelet Evaluation Hypochromasia Target Cells Rouleaux PT INR APTT D-Dimer, Quantitative 217 Sodium Potassium Chloride Carbon Dioxide Anion Gap BUN Creatinine Est GFR ( Amer) Est GFR (Non-Af Amer) Random Glucose Hemoglobin A1c Calcium Phosphorus Magnesium Total Bilirubin AST ALT Alkaline Phosphatase Lactate Dehydrogenase Total Creatine Kinase Troponin I NT-Pro-B Natriuret Pep Total Protein Albumin Globulin Albumin/Globulin Ratio Triglycerides Cholesterol LDL Cholesterol Direct HDL Cholesterol Free T4 TSH 3rd Generation Urine Color Yellow Urine Appearance Clear Urine pH 6.0 Ur Specific [place] >= 1.030 Urine Protein Trace H Urine Glucose (UA) 250 H Urine Ketones Negative Urine Blood Negative Urine Nitrate Negative Urine Bilirubin Negative Urine Urobilinogen 0.2 Ur Leukocyte Esterase Negative Urine RBC TEST NOT PERFORMED Urine WBC 2 - 5 Ur Epithelial Cells 6 - 8 H Influenza Typ A,B (EIA) Negative for flu a/b 11/29/18 11/30/18 11/30/18 22:25 07:00 07:00 WBC 51.3 H* RBC 3.31 L Hgb 10.6 L Hct 31.3 L MCV 94.6 MCH 32.0 MCHC 33.9 RDW 14.6 H Plt Count 204 MPV 9.1 Neut % (Auto) Lymph % (Auto) [place] % (Auto) Eos % (Auto) Baso % (Auto) Lymph # (Auto) [place] # (Auto) Eos # (Auto) Baso # (Auto) Absolute Neuts (auto) Neutrophils % (Manual) Band Neutrophils % Lymphocytes % (Manual) Monocytes % (Manual) Toxic Granulation Platelet Evaluation Hypochromasia Target Cells Rouleaux PT INR APTT D-Dimer, Quantitative Sodium 138 Potassium 4.5 Chloride 104 Carbon Dioxide 26 Anion Gap 12 BUN 18 Creatinine 0.6 L Est GFR ( Amer) > 60 Est GFR (Non-Af Amer) > 60 Random Glucose 158 H Hemoglobin A1c Calcium 9.3 Phosphorus 3.5 Magnesium 1.6 L Total Bilirubin 0.5 AST 18 ALT 19 Alkaline Phosphatase 67 Lactate Dehydrogenase Total Creatine Kinase Troponin I < 0.01 NT-Pro-B Natriuret Pep Total Protein 6.5 Albumin 3.9 Globulin 2.6 Albumin/Globulin Ratio 1.5 Triglycerides Cholesterol LDL Cholesterol Direct HDL Cholesterol Free T4 TSH 3rd Generation Urine Color Urine Appearance Urine pH Ur Specific [place] Urine Protein Urine Glucose (UA) Urine Ketones Urine Blood Urine Nitrate Urine Bilirubin Urine Urobilinogen Ur Leukocyte Esterase Urine RBC Urine WBC Ur Epithelial Cells Influenza Typ A,B (EIA) 11/30/18 11/30/18 11/30/18 07:00 07:00 07:00 WBC RBC Hgb Hct MCV MCH MCHC RDW Plt Count MPV Neut % (Auto) Lymph % (Auto) [place] % (Auto) Eos % (Auto) Baso % (Auto) Lymph # (Auto) [place] # (Auto) Eos # (Auto) Baso # (Auto) Absolute Neuts (auto) Neutrophils % (Manual) Band Neutrophils % Lymphocytes % (Manual) Monocytes % (Manual) Toxic Granulation Platelet Evaluation Hypochromasia Target Cells Rouleaux PT INR APTT D-Dimer, Quantitative Sodium Potassium Chloride Carbon Dioxide Anion Gap BUN Creatinine Est GFR ( Amer) Est GFR (Non-Af Amer) Random Glucose Hemoglobin A1c 7.4 H Calcium Phosphorus Magnesium Total Bilirubin AST ALT Alkaline Phosphatase Lactate Dehydrogenase Total Creatine Kinase Troponin I NT-Pro-B Natriuret Pep Total Protein Albumin Globulin Albumin/Globulin Ratio Triglycerides 72 Cholesterol 96 L LDL Cholesterol Direct 52 HDL Cholesterol 41 Free T4 0.98 TSH 3rd Generation 0.63 Urine Color Urine Appearance Urine pH Ur Specific [place] Urine Protein Urine Glucose (UA) Urine Ketones Urine Blood Urine Nitrate Urine Bilirubin Urine Urobilinogen Ur Leukocyte Esterase Urine RBC Urine WBC Ur Epithelial Cells Influenza Typ A,B (EIA) Assessment & Plan - Assessment and Plan (Free Text) Assessment: 68-year-old male with past medical history of diabetes, hyper cholesterolemia, small cell lung cancer status post lobectomy in August 2018, with 4 rounds of chemotherapy most recently received last , CABG, and left carotid stent presented to the ED following a near syncopal episode. Infectious disease was consulted for marked leukocytosis. - Continue with vancomycin and aztreonam - CT abdomen and pelvis ordered to rule out any intra-abdominal infection - Follow-up prior blood work done last week - Flu and UA were negative - Chest x-ray showed small right effusions with mild basilar little atelectasis - Follow-up septic workup - Cont to monitor Case and plan was reviewed and discussed with Dr. Lacey <Rosales Lacey - Last Filed: 11/30/18 15:50> Meds - Medications Medications: Current Medications Aspirin (Ecotrin) 81 mg PO QAM [facility] Last Admin: 11/30/18 10:29 Dose: 81 mg Atorvastatin Calcium (Lipitor) 40 mg PO [facility] Clopidogrel Bisulfate (Plavix) 75 mg PO QAM [facility] Last Admin: 11/30/18 10:29 Dose: 75 mg Heparin Sodium (Porcine) (Heparin) 5,000 units SC Q8H [facility]; Protocol Last Admin: 11/30/18 14:29 Dose: 5,000 units Aztreonam (Azactam 2 Gm) 100 mls @ 100 mls/hr IVPB Q8 [facility]; Protocol Stop: 12/07/18 07:01 Last Admin: 11/30/18 09:28 Dose: 100 mls/hr Vancomycin HCl (Vancomycin 1gm) 1 gm in 250 mls @ 167 mls/hr IVPB Q12H [facility]; P rotocol Last Admin: 11/30/18 10:29 Dose: 167 mls/hr Insulin Human Lispro (Humalog Low) 0 units SC ACHS [facility]; Protocol Last Admin: 11/30/18 13:55 Dose: Not Given Magnesium Oxide (Mag-Ox) 400 mg PO DAILY [facility] Last Admin: 11/30/18 12:12 Dose: 400 mg Results - Vital Signs Recent Vital Signs: Last Vital Signs Temp 97.8 F 11/29/18 17:38 Pulse 65 11/30/18 13:31 Resp 18 11/30/18 13:31 BP 139/59 L 11/30/18 11:25 Pulse Ox 98 11/30/18 11:25 - Labs Result Diagrams: 11/30/18 07:00 11/30/18 07:00 Labs: Laboratory Results - last 24 hr 11/29/18 11/29/18 11/29/18 19:08 19:08 19:08 WBC 52.6 H* RBC 3.15 L Hgb 10.2 L D Hct 29.6 L MCV 94.0 MCH 32.4 MCHC 34.5 RDW 14.5 Plt Count 244 MPV 9.1 Neut % (Auto) 96.7 H Lymph % (Auto) 3.0 L [place] % (Auto) 0.3 L Eos % (Auto) 0.0 L Baso % (Auto) 0.0 Lymph # (Auto) 1.6 [place] # (Auto) 0.2 Eos # (Auto) 0.0 Baso # (Auto) 0.02 Absolute Neuts (auto) 50.77 H Neutrophils % (Manual) 95 H Band Neutrophils % 2 Lymphocytes % (Manual) 3 L Monocytes % (Manual) TEST NOT PERFORMED Toxic Granulation 2+ Platelet Evaluation Normal Hypochromasia 2+ Target Cells Slight Rouleaux 2+ Retic Count PT 12.2 INR 1.10 APTT 26.2 L D-Dimer, Quantitative Sodium 134 Potassium 4.4 Chloride 102 Carbon Dioxide 23 Anion Gap 13 BUN 21 Creatinine 0.7 L Est GFR ( Amer) > 60 Est GFR (Non-Af Amer) > 60 Random Glucose 192 H Hemoglobin A1c Calcium 9.1 Phosphorus Magnesium 1.5 L Iron TIBC % Saturation Total Bilirubin 0.7 AST 17 ALT 27 Alkaline Phosphatase 62 Lactate Dehydrogenase 375 Total Creatine Kinase 23 L Troponin I < 0.01 NT-Pro-B Natriuret Pep 316 Total Protein 6.2 Albumin 3.8 Globulin 2.4 Albumin/Globulin Ratio 1.6 Triglycerides Cholesterol LDL Cholesterol Direct HDL Cholesterol Vitamin B12 Folate Free T4 TSH 3rd Generation Urine Color Urine Appearance Urine pH Ur Specific [place] Urine Protein Urine Glucose (UA) Urine Ketones Urine Blood Urine Nitrate Urine Bilirubin Urine Urobilinogen Ur Leukocyte Esterase Urine RBC Urine WBC Ur Epithelial Cells Influenza Typ A,B (EIA) 11/29/18 11/29/18 11/29/18 19:08 20:35 21:30 WBC RBC Hgb Hct MCV MCH MCHC RDW Plt Count MPV Neut % (Auto) Lymph % (Auto) [place] % (Auto) Eos % (Auto) Baso % (Auto) Lymph # (Auto) [place] # (Auto) Eos # (Auto) Baso # (Auto) Absolute Neuts (auto) Neutrophils % (Manual) Band Neutrophils % Lymphocytes % (Manual) Monocytes % (Manual) Toxic Granulation Platelet Evaluation Hypochromasia Target Cells Rouleaux Retic Count PT INR APTT D-Dimer, Quantitative 217 Sodium Potassium Chloride Carbon Dioxide Anion Gap BUN Creatinine Est GFR ( Amer) Est GFR (Non-Af Amer) Random Glucose Hemoglobin A1c Calcium Phosphorus Magnesium Iron TIBC % Saturation Total Bilirubin AST ALT Alkaline Phosphatase Lactate Dehydrogenase Total Creatine Kinase Troponin I NT-Pro-B Natriuret Pep Total Protein Albumin Globulin Albumin/Globulin Ratio Triglycerides Cholesterol LDL Cholesterol Direct HDL Cholesterol Vitamin B12 Folate Free T4 TSH 3rd Generation Urine Color Yellow Urine Appearance Clear Urine pH 6.0 Ur Specific [place] >= 1.030 Urine Protein Trace H Urine Glucose (UA) 250 H Urine Ketones Negative Urine Blood Negative Urine Nitrate Negative Urine Bilirubin Negative Urine Urobilinogen 0.2 Ur Leukocyte Esterase Negative Urine RBC TEST NOT PERFORMED Urine WBC 2 - 5 Ur Epithelial Cells 6 - 8 H Influenza Typ A,B (EIA) Negative for flu a/b 11/29/18 11/30/18 11/30/18 22:25 07:00 07:00 WBC 51.3 H* RBC 3.31 L Hgb 10.6 L Hct 31.3 L MCV 94.6 MCH 32.0 MCHC 33.9 RDW 14.6 H Plt Count 204 MPV 9.1 Neut % (Auto) Lymph % (Auto) [place] % (Auto) Eos % (Auto) Baso % (Auto) Lymph # (Auto) [place] # (Auto) Eos # (Auto) Baso # (Auto) Absolute Neuts (auto) Neutrophils % (Manual) Band Neutrophils % Lymphocytes % (Manual) Monocytes % (Manual) Toxic Granulation Platelet Evaluation Hypochromasia Target Cells Rouleaux Retic Count PT INR APTT D-Dimer, Quantitative Sodium 138 Potassium 4.5 Chloride 104 Carbon Dioxide 26 Anion Gap 12 BUN 18 Creatinine 0.6 L Est GFR ( Amer) > 60 Est GFR (Non-Af Amer) > 60 Random Glucose 158 H Hemoglobin A1c Calcium 9.3 Phosphorus 3.5 Magnesium 1.6 L Iron TIBC % Saturation Total Bilirubin 0.5 AST 18 ALT 19 Alkaline Phosphatase 67 Lactate Dehydrogenase Total Creatine Kinase Troponin I < 0.01 NT-Pro-B Natriuret Pep Total Protein 6.5 Albumin 3.9 Globulin 2.6 Albumin/Globulin Ratio 1.5 Triglycerides Cholesterol LDL Cholesterol Direct HDL Cholesterol Vitamin B12 Folate Free T4 TSH 3rd Generation Urine Color Urine Appearance Urine pH Ur Specific [place] Urine Protein Urine Glucose (UA) Urine Ketones Urine Blood Urine Nitrate Urine Bilirubin Urine Urobilinogen Ur Leukocyte Esterase Urine RBC Urine WBC Ur Epithelial Cells Influenza Typ A,B (EIA) 11/30/18 11/30/18 11/30/18 07:00 07:00 07:00 WBC RBC Hgb Hct MCV MCH MCHC RDW Plt Count MPV Neut % (Auto) Lymph % (Auto) [place] % (Auto) Eos % (Auto) Baso % (Auto) Lymph # (Auto) [place] # (Auto) Eos # (Auto) Baso # (Auto) Absolute Neuts (auto) Neutrophils % (Manual) Band Neutrophils % Lymphocytes % (Manual) Monocytes % (Manual) Toxic Granulation Platelet Evaluation Hypochromasia Target Cells Rouleaux Retic Count PT INR APTT D-Dimer, Quantitative Sodium Potassium Chloride Carbon Dioxide Anion Gap BUN Creatinine Est GFR ( Amer) Est GFR (Non-Af Amer) Random Glucose Hemoglobin A1c 7.4 H Calcium Phosphorus Magnesium Iron TIBC % Saturation Total Bilirubin AST ALT Alkaline Phosphatase Lactate Dehydrogenase Total Creatine Kinase Troponin I NT-Pro-B Natriuret Pep Total Protein Albumin Globulin Albumin/Globulin Ratio Triglycerides 72 Cholesterol 96 L LDL Cholesterol Direct 52 HDL Cholesterol 41 Vitamin B12 > 1000 H Folate 7.4 Free T4 0.98 TSH 3rd Generation 0.63 Urine Color Urine Appearance Urine pH Ur Specific [place] Urine Protein Urine Glucose (UA) Urine Ketones Urine Blood Urine Nitrate Urine Bilirubin Urine Urobilinogen Ur Leukocyte Esterase Urine RBC Urine WBC Ur Epithelial Cells Influenza Typ A,B (EIA) 11/30/18 11/30/18 13:38 13:38 WBC RBC Hgb Hct MCV MCH MCHC RDW Plt Count MPV Neut % (Auto) Lymph % (Auto) [place] % (Auto) Eos % (Auto) Baso % (Auto) Lymph # (Auto) [place] # (Auto) Eos # (Auto) Baso # (Auto) Absolute Neuts (auto) Neutrophils % (Manual) Band Neutrophils % Lymphocytes % (Manual) Monocytes % (Manual) Toxic Granulation Platelet Evaluation Hypochromasia Target Cells Rouleaux Retic Count 0.46 L PT INR APTT D-Dimer, Quantitative Sodium Potassium Chloride Carbon Dioxide Anion Gap BUN Creatinine Est GFR ( Amer) Est GFR (Non-Af Amer) Random Glucose Hemoglobin A1c Calcium Phosphorus Magnesium Iron 234 H TIBC 277 % Saturation 85 H Total Bilirubin AST ALT Alkaline Phosphatase Lactate Dehydrogenase Total Creatine Kinase Troponin I NT-Pro-B Natriuret Pep Total Protein Albumin Globulin Albumin/Globulin Ratio Triglycerides Cholesterol LDL Cholesterol Direct HDL Cholesterol Vitamin B12 Folate Free T4 TSH 3rd Generation Urine Color Urine Appearance Urine pH Ur Specific [place] Urine Protein Urine Glucose (UA) Urine Ketones Urine Blood Urine Nitrate Urine Bilirubin Urine Urobilinogen Ur Leukocyte Esterase Urine RBC Urine WBC Ur Epithelial Cells Influenza Typ A,B (EIA) Assessment & Plan - Assessment and Plan (Free Text) Assessment: Infectious diseases Attending Physician Attestation Patient seen and examined, discussed with medical device engineer. I have reviewed the patient's history of present illness, past medical, social, personal and family histories, pertinent physical exam findings, course so far in this hospital admission, pertinent laboratory and imaging results. I agree with the above findings, assessment and plan. In addition,started Vancomycin and Aztreonam for patient with marked leukocytosis with SIRS, R/O sepsis from intra-abdominal infection. Follow up blood, urine cx, CT A/P and will trend WBC count, in this patient with small cell lung cancer on chemotherapy.
[2018-11-30] MEDS ORDERED: Iohexol 350 MG/100 ML VIAL ONE (13:00)
--- NOTE | 2018-11-30 13:23 | CON ---
DATE OF CONSULTATION: 11/30/2018 REQUESTING PHYSICIAN: Dr. Friedman. REASON FOR CONSULTATION: Near syncope. HISTORY OF PRESENT ILLNESS: This is a 68-year-old man, well known to me with a history of coronary artery disease, status post prior bypass surgery and a recent lobectomy for lung cancer with subsequent chemotherapy, who was at home yesterday when he felt profoundly diaphoretic and weak and felt that he was about to lose consciousness. His blood pressure checked by the family members was reportedly 66/33. Then, he was brought to the emergency room. Upon arrival, his blood pressure is 114/50. He is seen now sitting in the emergency room and feels improved. He denied any chest pain. He is unaware of any palpitations at that time. He states he has had similar reactions after chemotherapy in the past. He recently completed his final cycle. PAST MEDICAL HISTORY: His past history is notable for the problems mentioned above. He has undergone prior cholecystectomy. He underwent a recent right lower lobe lobectomy. He also has a history of diabetes and hyperlipidemia. ALLERGIES: HE HAS HAD SEVERE ALLERGIES IN THE PAST TO LATEX, PENICILLIN, AND VARIOUS METAL ALLERGIES. SOCIAL HISTORY: He is a former smoker. He denies alcohol use. He is retired and lives with his and family. FAMILY HISTORY: Unremarkable for premature heart disease. REVIEW OF SYSTEMS: Ten-point review of systems is notable mainly for problems mentioned above. PHYSICAL EXAMINATION: GENERAL: He is a middle-aged man, who feels fair. VITAL SIGNS: His blood pressure is 136/60 with a pulse of 68 and sinus, respirations are 14. He is afebrile. HEENT: Alopecia is present secondary to recent chemotherapy. NECK: No JVD noted. Carotid upstrokes 2+ bilaterally. CHEST: Revealed bilateral scattered rhonchi. HEART: PMI in normal position. Soft systolic murmur present in the lower left sternal border. ABDOMEN: Soft and nontender, normoactive bowel sounds. EXTREMITIES: Trace ankle edema. SKIN: Warm and dry. PSYCHIATRIC: Normal mood and affect. NEUROLOGIC: Alert and oriented x3. No gross motor or sensory deficits notable. DIAGNOSTIC DATA: White count 52.6 with a hemoglobin and hematocrit of 10.2 and 29.6, platelet count of 244,000. PT/PTT are 12.2 and 26.2 with a D-dimer of 217. Potassium 4.4, BUN and creatinine of 21 and 0.7. Two sets of cardiac enzymes are negative. Magnesium is 1.5. Cholesterol 96 with a triglycerides of 72, LDL 52 and HDL 41. TSH 0.63. Electrocardiogram reveals sinus rhythm with no significant abnormalities. Chest x-ray reveals enlarged cardiac silhouette with small right pleural effusion and bibasilar atelectasis. CT of the head was reportedly unremarkable. IMPRESSION: Near syncope with questionable history of hypotension documented at home, possibly related to adverse reaction to recent chemotherapy. No evidence of cardiac dysrhythmia or acute cardiac ischemia at the present time. Hypermagnesemia, likely related to chemotherapy, however, not likely implicating this current recent symptomatology. RECOMMENDATIONS: A baseline echocardiogram will be performed. Continued IV hydration is advised. Assuming his workup is unremarkable, early discharge would be advisable with outpatient followup as needed. Thank you for this consultation. We will be happy to follow as needed. Claudy Kevin MD
[2018-11-30 13:40] LABS: FOLATE 7.4 ng/mL
[2018-11-30] MEDS ORDERED: Pneumococcal 23-Valent Vaccine IM ONE (13:51)
[2018-11-30] MEDS ORDERED: Influenza Vaccine 60 mcg/0.5 mL SYR (4YR UP) IM ONE (13:51)
[2018-11-30 13:52] VITALS: BMI 28.3
[2018-11-30 13:59] LABS: IRON 234 ug/dL (45-180)
[2018-11-30 14:09] LABS: % IRON SATURATION 85 % (20-55); TOTAL IRON BINDING CAPACITY 277 ug/dL (261-462)
--- NOTE | 2018-11-30 17:19 | CT ---
Date of service: 11/30/2018 PROCEDURE: CT Abdomen and Pelvis with Oral contrast. HISTORY: Rule out intra-abdominal infection. COMPARISON: No prior TECHNIQUE: Contiguous axial images of the abdomen and pelvis performed following intravenous injection of approximately 100 cc Omnipaque 350 contrast material. Additional 2D sagittal and coronal reformats generated. Radiation dose: Total exam DLP = 383.84 mGy-cm. This CT exam was performed using one or more of the following dose reduction techniques: Automated exposure control, adjustment of the mA and/or kV according to patient size, and/or use of iterative reconstruction technique. FINDINGS: LOWER THORAX: Small right-sided effusion; questionably loculated.. Small linear calcification seen along the right diaphragmatic surface. There is also mild scarring changes in the middle lobe and lingular regions. Metallic clips are seen abutting the anterior margin of the distal esophagus. Clinical correlation with surgical history recommended. Heart size is within range of normal. No significant pericardial effusion. LIVER: Liver exhibits normal size. Minor fatty hepatic infiltration. No obvious hepatic mass collection or calcification. Portal and splenic veins opacified. GALLBLADDER AND BILE DUCTS: Cholecystectomy. PANCREAS: There appears to be very mild dilatation of the distal pancreatic duct. SPLEEN: Spleen is enlarged measuring nearly 14 cm in CC dimension. There is a small splenule adjacent to the dorsal aspect of the spleen. ADRENALS: Nodular appearing left adrenal gland with questionable small 11 mm nodule. Follow-up noncontrast MRI of the adrenal glands could be performed for further evaluation.. KIDNEYS AND URETERS: Kidneys demonstrate symmetric nephrograms. No evidence of nephrolithiasis or hydronephrosis.. BLADDER: Urinary bladder appears incompletely distended which in part accounts for thick-walled appearance. Muscular hypertrophy may contribute. Correlation with urinalysis recommended. REPRODUCTIVE: Prostate gland measures approximately 3.4 cm in transverse dimension. APPENDIX: Normal appendix. BOWEL: Evaluation of the bowel is limited due to due the lack of oral contrast material. The stomach is incompletely distended prominent rugal folds likely due to incomplete distention however gastritis not excluded. There are several proximal loops of small bowel that exhibit mild wall thickening suggesting enteritis. Clinical correlation recommended. There is also a apparent anastomosis involving a segment of small bowel right upper abdomen which is locally dilated. Remaining visualized loops of small bowel exhibit normal contour and caliber. No evidence of acute mechanical small bowel obstruction.. Moderate amount of stool seen throughout the large bowel consistent with mild fecal retention/constipation. PERITONEUM: Unremarkable. No fluid collection. No free air. Small of fat containing bilateral inguinal hernias. LYMPH NODES: Unremarkable. No enlarged lymph nodes. VASCULATURE: Unremarkable. No aortic aneurysm. No aortic atherosclerotic calcification or mural plaque present. BONES: Mild multilevel degenerative spondylosis of the lower thoracic and lumbar spine. OTHER FINDINGS: None. IMPRESSION: Findings suggest a small-bowel enteritis. Apparent anastomosis involving a segment of small bowel right upper quadrant of the abdomen which is locally dilated. Findings also consistent with constipation. Splenomegaly. Cholecystectomy. Mild fatty hepatic infiltration. Small right-sided effusion possibly loculated. Metallic clips seen abutting the distal esophagus; clinical correlation with surgical history recommended.
--- NOTE | 2018-11-30 20:19 | US ---
PROCEDURE: Bilateral carotid artery duplex ultrasound HISTORY: Carotid stenosis PHYSICIAN(S): Silas Flores MD. TECHNIQUE: Duplex sonography and color-flow Doppler were used to evaluate the carotid bifurcations and limited segments of the vertebral arteries bilaterally. FINDINGS: There is mild to moderate smooth heterogeneous plaque noted at the carotid bifurcations bilaterally. The peak systolic velocity in the proximal right internal carotid artery is 146 cm/sec. This corresponds to a 40-59 percent proximal right ICA stenosis. Mildly elevated systolic velocities are noted in the proximal right external carotid artery. There is antegrade flow in the right vertebral artery. The peak systolic velocity in the proximal left internal carotid artery is 102 cm/sec. This corresponds to a 20 to 39% proximal left ICA stenosis. Normal systolic velocities are noted in the proximal left external carotid artery. There is antegrade flow in the left vertebral artery. IMPRESSION: 1. 40-50 percent proximal right ICA stenosis 2. 20-39 percent proximal left ICA stenosis 3. Antegrade flow in both vertebral arteries
--- NOTE | 2018-11-30 20:19 | US ---
HISTORY: Leg pain and swelling. Evaluate for DVT PHYSICIAN(S): Silas Flores MD. TECHNIQUE: Duplex sonography and color-flow Doppler with graded compression were used to evaluate the deep venous systems of both lower extremities. FINDINGS: The visualized deep venous systems of both lower extremities are sonographically normal and compressible. Normal wave forms and augmentation are seen. There is no sonographic evidence for deep venous thrombosis in the visualized segments of both lower extremities. IMPRESSION: No sonographic evidence for deep venous thrombosis in the visualized segments of both lower extremities.
[2018-12-01] MEDS: Aztreonam 2 Gm in NS 100mL 100 ML IVPB SCH ×3 (05:20→21:11)
[2018-12-01 07:03] LABS: MEAN CELL VOLUME 95.5 fl (80.0-105.0); MEAN CORPUSCULAR HEMOGLOBIN 31.9 pg (25.0-35.0); MEAN CORPUSCULAR HGB CONC 33.4 g/dl (31.0-37.0); MEAN PLATELET VOLUME 9.7 fl (7.0-11.0); RBC 3.13 10^6/uL (3.5-6.1); RED CELL DISTRIBUTION WIDTH 14.8 % (11.5-14.5)
[2018-12-01 07:06] LABS: WHITE BLOOD COUNT 30.3 10^3/uL (4.5-11.0)
[2018-12-01 07:22] LABS: ALB/GLOB RATIO 1.5 (1.1-1.8); ALBUMIN 3.7 g/dL (3.0-4.8); ALT/SGPT 21 U/L (7-56); AST/SGOT 21 U/L (17-59); BLOOD UREA NITROGEN 14 mg/dL (7-21); CALCIUM 9.1 mg/dL (8.4-10.5); GFR NON-AFRICAN AMERICAN > 60
--- NOTE | 2018-12-01 08:19 | CP.PCM.PN ---
<Sukh Pierre - Last Filed: 12/01/18 12:16> Subjective - Date & Time of Evaluation Date of Evaluation: 12/01/18 Time of Evaluation: 07:10 - Subjective Subjective: Infectious disease progress note: Pt seen and examined at bedside. No acute events overnight. Denies any further complaints of near syncope, Denies any abd pain, n/v/d. 12 Point ROS performed and neg other than stated above. Objective - Vital Signs/Intake and Output Vital Signs (last 24 hours): Temp Pulse Resp BP Pulse Ox 97.8 F 65 20 121/68 98 12/01/18 00:01 12/01/18 06:00 12/01/18 00:01 12/01/18 00:01 12/01/18 00:01 Intake and Output: 12/01/18 12/01/18 06:59 18:59 Intake Total 710 Balance 710 - Medications Medications: Current Medications Aspirin (Ecotrin) 81 mg PO QAM [facility] Last Admin: 11/30/18 10:29 Dose: 81 mg Atorvastatin Calcium (Lipitor) 40 mg PO HS [facility] Last Admin: 11/30/18 22:05 Dose: 40 mg Clopidogrel Bisulfate (Plavix) 75 mg PO QAM [facility] Last Admin: 11/30/18 10:29 Dose: 75 mg Heparin Sodium (Porcine) (Heparin) 5,000 units SC Q8H [facility]; Protocol Last Admin: 12/01/18 05:20 Dose: 5,000 units Aztreonam (Azactam 2 Gm) 100 mls @ 100 mls/hr IVPB Q8 [facility]; Protocol Stop: 12/07/18 07:01 Last Admin: 12/01/18 05:20 Dose: 100 mls/hr Vancomycin HCl (Vancomycin 1gm) 1 gm in 250 mls @ 167 mls/hr IVPB Q12 [facility]; Protocol Stop: 12/05/18 10:00 Metronidazole (Flagyl) 500 mg in 100 mls @ 100 mls/hr IVPB Q8 [facility]; Protocol Insulin Human Lispro (Humalog Low) 0 units SC ACHS [facility]; Protocol Last Admin: 11/30/18 22:53 Dose: Not Given Magnesium Oxide (Mag-Ox) 400 mg PO DAILY [facility] Last Admin: 11/30/18 12:12 Dose: 400 mg Metoprolol Succinate (Toprol Xl) 25 mg PO DAILY [facility] - Labs Labs: 12/01/18 06:00 12/01/18 06:00 PT 12.2 SECONDS (9.4-12.5) 11/29/18 19:08 INR 1.10 11/29/18 19:08 APTT 26.2 Seconds (26.9-38.3) L 11/29/18 19:08 - Constitutional Appears: No Acute Distress - Head Exam Head Exam: ATRAUMATIC, NORMOCEPHALIC - Eye Exam Eye Exam: EOMI - ENT Exam ENT Exam: Mucous Membranes Moist - Respiratory Exam Respiratory Exam: Clear to Ausculation Bilateral (no r/r/w) - Cardiovascular Exam Cardiovascular Exam: REGULAR RHYTHM, +S1, +S2 - GI/Abdominal Exam GI & Abdominal Exam: Soft (non tender non distended) - Extremities Exam Extremities Exam: absent: Calf Tenderness, Pedal Edema - Neurological Exam Neurological Exam: Alert, Awake, Oriented x3 - Psychiatric Exam Psychiatric exam: Normal Mood - Skin Skin Exam: Dry, Warm Assessment and Plan - Assessment and Plan (Free Text) Assessment: 68-year-old male with past medical history of diabetes, hyper cholesterolemia, small cell lung cancer status post lobectomy in August 2018, with 4 rounds of chemotherapy most recently received last , CABG, and left carotid stent presented to the ED following a near syncopal episode. Found to have SIRS with marked leukocytosis. - WBC trending ramon, today 30.3; Of note patient did have a neulasta 4 days ago. - Continue with vancomycin and aztreonam Day 2 - CT abdomen and pelvis - small bowel enteritis, asymptomatic - Follow-up prior blood work done last week - Chest x-ray showed small right effusions with mild basilar little atelectasis - Follow-up septic workup - blood culture neg thus far - Cont to monitor Case and plan was reviewed and discussed with Dr. Lacey <Rosales Lacey - Last Filed: 12/01/18 13:46> Objective - Vital Signs/Intake and Output Vital Signs (last 24 hours): Temp Pulse Resp BP Pulse Ox 97.8 F 120 H 19 129/71 97 12/01/18 08:34 12/01/18 09:22 12/01/18 08:34 12/01/18 09:22 12/01/18 08:34 Intake and Output: 12/01/18 12/01/18 06:59 18:59 Intake Total 710 Balance 710 - Medications Medications: Current Medications Aspirin (Ecotrin) 81 mg PO QAM [facility] Last Admin: 12/01/18 09:21 Dose: 81 mg Atorvastatin Calcium (Lipitor) 40 mg PO HS [facility] Last Admin: 11/30/18 22:05 Dose: 40 mg Clopidogrel Bisulfate (Plavix) 75 mg PO QAM [facility] Last Admin: 12/01/18 09:21 Dose: 75 mg Docusate Sodium (Colace) 100 mg PO BID [facility] Last Admin: 12/01/18 13:23 Dose: 100 mg Heparin Sodium (Porcine) (Heparin) 5,000 units SC Q8H [facility]; Protocol Last Admin: 12/01/18 13:23 Dose: 5,000 units Aztreonam (Azactam 2 Gm) 100 mls @ 100 mls/hr IVPB Q8 [facility]; Protocol Stop: 12/07/18 07:01 Last Admin: 12/01/18 13:24 Dose: 100 mls/hr Vancomycin HCl (Vancomycin 1gm) 1 gm in 250 mls @ 167 mls/hr IVPB Q12 [facility]; Protocol Stop: 12/05/18 10:00 Last Admin: 12/01/18 09:23 Dose: 167 mls/hr Metronidazole (Flagyl) 500 mg in 100 mls @ 100 mls/hr IVPB Q8 [facility]; Protocol Last Admin: 12/01/18 13:24 Dose: 100 mls/hr Insulin Human Lispro (Humalog Low) 0 units SC ACHS [facility]; Protocol Last Admin: 12/01/18 11:52 Dose: 3 unit Magnesium Oxide (Mag-Ox) 400 mg PO DAILY [facility] Last Admin: 12/01/18 09:22 Dose: 400 mg Metoprolol Succinate (Toprol Xl) 25 mg PO DAILY [facility] Last Admin: 12/01/18 09:22 Dose: 25 mg - Labs Labs: 12/01/18 06:00 12/01/18 06:00 PT 12.2 SECONDS (9.4-12.5) 11/29/18 19:08 INR 1.10 11/29/18 19:08 APTT 26.2 Seconds (26.9-38.3) L 11/29/18 19:08 Assessment and Plan - Assessment and Plan (Free Text) Assessment: Infectious diseases Attending Physician Attestation Patient seen and examined, discussed with medical device sales. I have reviewed the patient's history of present illness, past medical, social, personal and family histories, pertinent physical exam findings, course so far in this hospital admission, pertinent laboratory and imaging results. I agree with the above findings, assessment and plan. In addition, continue Vancomycin, Azactam for patient with leukocytosis with SIRS probably from Neulasta, R/O sepsis from enteritis. Follow up blood cx and will continue to trend WBC count.
[2018-12-01] MEDS: Insulin Lispro (humaLOG) LOW Coverage SC SCH ×4 (08:44→21:31)
--- NOTE | 2018-12-01 09:12 | CP.PCM.PN ---
<Vida Branham - Last Filed: 12/01/18 10:53> Subjective - Date & Time of Evaluation Date of Evaluation: 12/01/18 Time of Evaluation: 07:00 - Subjective Subjective: Pgy3 Medicine progress note for Dr. Friedman Patient seen and examined at bedside. No acute events overnight as per nursing. Patient resting comfortably in bed and ambulating to the bathroom. Patient remained afebrile with no acute complaints chills, headache, dizziness, chest pain, palpitations, SOB, cough, abd pain, nausea, vomiting, bowel/bladder complaints, pain/swelling in his legs b/l. Patient is in good spirits this AM and tolerating his diet well. Objective - Vital Signs/Intake and Output Vital Signs (last 24 hours): Temp Pulse Resp BP Pulse Ox 97.8 F 71 19 129/71 97 12/01/18 08:34 12/01/18 08:34 12/01/18 08:34 12/01/18 08:34 12/01/18 08:34 Intake and Output: 12/01/18 12/01/18 06:59 18:59 Intake Total 710 Balance 710 - Medications Medications: Current Medications Aspirin (Ecotrin) 81 mg PO QAM [facility] Last Admin: 11/30/18 10:29 Dose: 81 mg Atorvastatin Calcium (Lipitor) 40 mg PO [facility] Last Admin: 11/30/18 22:05 Dose: 40 mg Clopidogrel Bisulfate (Plavix) 75 mg PO QAM [facility] Last Admin: 11/30/18 10:29 Dose: 75 mg Heparin Sodium (Porcine) (Heparin) 5,000 units SC Q8H [facility]; Protocol Last Admin: 12/01/18 05:20 Dose: 5,000 units Aztreonam (Azactam 2 Gm) 100 mls @ 100 mls/hr IVPB Q8 [facility]; Protocol Stop: 12/07/18 07:01 Last Admin: 12/01/18 05:20 Dose: 100 mls/hr Vancomycin HCl (Vancomycin 1gm) 1 gm in 250 mls @ 167 mls/hr IVPB Q12 [facility]; Protocol Stop: 12/05/18 10:00 Metronidazole (Flagyl) 500 mg in 100 mls @ 100 mls/hr IVPB Q8 [facility]; Protocol Insulin Human Lispro (Humalog Low) 0 units SC ACHS [facility]; Protocol Last Admin: 12/01/18 08:44 Dose: 1 unit Magnesium Oxide (Mag-Ox) 400 mg PO DAILY [facility] Last Admin: 11/30/18 12:12 Dose: 400 mg Metoprolol Succinate (Toprol Xl) 25 mg PO DAILY [facility] - Labs Labs: 12/01/18 06:00 12/01/18 06:00 PT 12.2 SECONDS (9.4-12.5) 11/29/18 19:08 INR 1.10 11/29/18 19:08 APTT 26.2 Seconds (26.9-38.3) L 11/29/18 19:08 - Additional Findings Additional findings: - Constitutional Appears: Non-toxic, No Acute Distress - Head Exam Head Exam: ATRAUMATIC, NORMAL INSPECTION, NORMOCEPHALIC - Eye Exam Eye Exam: EOMI, Normal appearance. absent: Conjunctival injection, Scleral icterus - ENT Exam ENT Exam: Mucous Membranes Moist - Neck Exam Neck exam: Negative for: Lymphadenopathy - Respiratory Exam Respiratory Exam: Clear to Auscultation Bilateral, NORMAL BREATHING PATTERN. absent: Accessory Muscle Use, Rales, Rhonchi, Wheezes, Respiratory Distress Additional comments: port in L upper chest wall - Cardiovascular Exam Cardiovascular Exam: REGULAR RHYTHM, +S1, +S2 - GI/Abdominal Exam GI & Abdominal Exam: Normal Bowel Sounds, Soft. absent: Firm, Guarding, Rigid, Tenderness - Rectal Exam Rectal Exam: Deferred - Extremities Exam Extremities exam: Positive for: normal inspection, pedal pulses present. Negative for: pedal edema, tenderness - Back Exam Back exam: NORMAL INSPECTION. absent: rash noted - Neurological Exam Neurological exam: Alert, CN II-XII Intact, Oriented x3 - Psychiatric Exam Psychiatric exam: Normal Affect, Normal Mood - Skin Skin Exam: Dry, Intact, Normal Color Assessment and Plan - Assessment and Plan (Free Text) Assessment: - R sided pleural effusion - Small-bowel enteritis - Constipation - Near-syncopal episode- resolved - Marked leukocytosis seconday to chemotherapy regimen - Normocytic anemia - CAD s/p CABG - HLD - DM2 - Small cell lung ca s/p lobectomy on chemo - L cartoid A stent Plan: Patient's vitals, blood work, imaging reviewed in EMR. I spoke to patient's daughter Katia [phone] for more information. Patient was diagnosed with lung ca in July 2018 and had Right lower lobe lobectomy in August 12, 2018. Patient had chemo port placed Sep 11, 2018. Since then he has received 4 total doses of chemotherapy. Regimen is spread over 3 days [Day 1: Cisplatin and Etoposide, Day 2: Etoposide, Day 3: Etoposide and 24hrs of Neulasta. Patient's last cycle of chemotherapy was 2 days prior to presentation in the ER and his last dose of Neulasta was on Friday11/27/18. WBC trending down and is 30 this AM . CXR revealed small R sided effusion and CT Abd/pelvis revealed small right sided effusion possibly loculated. pulmonology consulted- appreciate reccs. CT abd/pelvis also revealed small bowel enteritis and constipation. Patient is asymptomatic at this time. Flagyl has been added to abx regimen in addition to Vanc and Azactam. Patient is tolerating good PO intake. Colace and Miralax ordered for constipation noticed on CT. Blood cultures prelim negative x 2. Patient also had echo done- pending results. In regards to near syncopal episode, cause is likely noncardiogenic in nature. Patient has had no acute events on tele monitor. Patient's head CT showed generalized parenchymal atrophy noted as demonstrated by symmetrical dilatation of ventricles and sulci and chronic periventricular and subcortical microvascular disease and u/s carotids revealed 40-50% proximal right ICA stenosis and 20-39% proximal left ICA stenosis. U/S LE were done in the ER which were negative for DVT. Patient's UA a nd flu were negative. Iron studies reviewed. Continue home meds ASA, Plavix, lipitor, and toprol for CAD and HLD. Patient's home metformin on hold and patient on RISS low at this time. DVT ppx in place. Will continue to monitor patient at this time. I have also reached out patient's Oncologist Dr. Johnson [phone] who is updated and aware of patient's hospital course thus far. Discussed with Dr. Elder Branham PGY3 <Malik Friedman S - Last Filed: 12/01/18 20:07> Objective - Vital Signs/Intake and Output Vital Signs (last 24 hours): Temp Pulse Resp BP Pulse Ox 98.2 F 66 20 118/64 99 12/01/18 16:35 12/01/18 17:48 12/01/18 16:35 12/01/18 16:35 12/01/18 16:35 Intake and Output: 12/01/18 12/02/18 18:59 06:59 Intake Total 1080 Balance 1080 - Medications Medications: Current Medications Aspirin (Ecotrin) 81 mg PO QAM [facility] Last Admin: 12/01/18 09:21 Dose: 81 mg Atorvastatin Calcium (Lipitor) 40 mg PO HS [facility] Last Admin: 11/30/18 22:05 Dose: 40 mg Clopidogrel Bisulfate (Plavix) 75 mg PO QAM [facility] Last Admin: 12/01/18 09:21 Dose: 75 mg Docusate Sodium (Colace) 100 mg PO BID [facility] Last Admin: 12/01/18 16:59 Dose: 100 mg Heparin Sodium (Porcine) (Heparin) 5,000 units SC Q8H [facility]; Protocol Last Admin: 12/01/18 13:23 Dose: 5,000 units Aztreonam (Azactam 2 Gm) 100 mls @ 100 mls/hr IVPB Q8 [facility]; Protocol Stop: 12/07/18 07:01 Last Admin: 12/01/18 13:24 Dose: 100 mls/hr Vancomycin HCl (Vancomycin 1gm) 1 gm in 250 mls @ 167 mls/hr IVPB Q12 [facility]; Protocol Stop: 12/05/18 10:00 Last Admin: 12/01/18 09:23 Dose: 167 mls/hr Metronidazole (Flagyl) 500 mg in 100 mls @ 100 mls/hr IVPB Q8 [facility]; Protocol Last Admin: 12/01/18 13:24 Dose: 100 mls/hr Insulin Human Lispro (Humalog Low) 0 units SC ACHS [facility]; Protocol Last Admin: 12/01/18 16:57 Dose: 2 unit Magnesium Oxide (Mag-Ox) 400 mg PO DAILY [facility] Last Admin: 12/01/18 09:22 Dose: 400 mg Metoprolol Succinate (Toprol Xl) 25 mg PO DAILY [facility] Last Admin: 12/01/18 09:22 Dose: 25 mg - Labs Labs: 12/01/18 06:00 12/01/18 06:00 PT 12.2 SECONDS (9.4-12.5) 11/29/18 19:08 INR 1.10 01/27/19 19:08 APTT 26.2 Seconds (26.9-38.3) L 11/29/18 19:08 Assessment and Plan - Assessment and Plan (Free Text) Plan: Pt seen and examined by me. I have reviewed the note of the medical billing associate and I agree with it. I have discussed the assessment and plan with the resident. I have reviewed the medications and the last labs.Pt with leucocytosis, which is improving. Pt was sgiven Neulasta by his oncologist. He has enteritis on the CT of the Abd/Pelvis. Pt is on Lipitor for dyslipidemia. Will continue with IV Abx. He is feeling well. WBC is improving. Colace and Miralax for constipation. He is tolerating and eating well.
[2018-12-01] MEDS: Metoprolol Succinate 25 mg XL Tab PO SCH (09:22)
[2018-12-01] MEDS: Magnesium Oxide 400 mg Tab UD PO SCH (09:22)
[2018-12-01] MEDS: Vancomycin 1gm in NS 250ml 1 GM/250 ML BAG IVPB SCH ×2 (09:23→23:29)
[2018-12-01] MEDS ORDERED: POLYETHYLENE GLYCOL 3350 17 GM/Dose PACKET PO ONE (11:12)
--- NOTE | 2018-12-01 11:29 | CARD ---
APPROVED REPORT Date of service: 11/30/2018 EXAM: Two-dimensional and M-mode echocardiogram with Doppler and color Doppler. INDICATION Syncope 2D DIMENSIONS Left Atrium (2D)3.4 (1.6-4.0cm)IVSd1.4 (0.7-1.1cm) LVDd3.9 (3.9-5.9cm)PWd1.2 (0.7-1.1cm) LVDs2.6 (2.5-4.0cm)FS (%) 33.0 % LVEF (%)62.2 (>50%) M-Mode DIMENSIONS Aortic Root2.70 (2.2-3.7cm)Aortic Cusp Exc.1.80 (1.5-2.0cm) Aortic Valve AoV Peak Wcxiozui959.0cm/Jose L Peak GR.9mmHg Mitral Valve MV E Xldohbfa05.6cm/sMV A Gzfrlsbp998.0cm/sE/A ratio0.7 TDI E/Lateral E'0.0E/Medial E'0.0 Tricuspid Valve TR Peak [id number] [id number] Peak Gr.4mmHg [id number] LEFT VENTRICLE The left ventricle is normal size. There is mild concentric left ventricular hypertrophy. The left ventricular function is normal. The left ventricular ejection fraction is within the normal range. There is normal LV segmental wall motion. RIGHT VENTRICLE The right ventricle is normal size. The right ventricular systolic function is normal. ATRIA The left atrium size is normal. The right atrium size is normal. The interatrial septum is intact with no evidence for an atrial septal defect. AORTIC VALVE The aortic valve is normal in structure. No aortic regurgitation is present. There is no aortic valvular stenosis. MITRAL VALVE The mitral valve is normal in structure. There is no mitral valve regurgitation noted. TRICUSPID VALVE The tricuspid valve is normal in structure. There is no tricuspid valve regurgitation noted. GREAT VESSELS The aortic root is normal in size. The IVC is normal in size and collapses >50% with inspiration. PERICARDIAL EFFUSION There is no pleural effusion. There is no pericardial effusion. <Conclusion> Mild concentric LVH. Otherwise normal study.
[2018-12-01] MEDS: metroNIDAZOLE IV 500 mg/100 ml 500 MG/100 ML BAG IVPB SCH ×2 (13:24→21:11)
--- NOTE | 2018-12-01 16:11 | CON ---
DATE: 12/01/2018 PULMONARY CONSULTATION REASON FOR PULMONARY CONSULTATION: Right pleural effusion. REFERRING PHYSICIAN: Dr. Malik Friedman. HISTORY OF PRESENT ILLNESS: The patient is a 68-year-old male, with past medical history significant for extensive coronary artery disease, status post quadruple bypass, carotid artery disease, status post left carotid stent, small cell lung cancer, status post partial right lower lobe lobectomy (08/2018), who presents to [facility] following a near-syncopal episode. The patient stated that he had just come in from outside and sat down in a chair. He then started feeling very lightheaded and "clammy." The patient was then brought to [facility] for additional evaluation. I did have a long talk with the patient this morning. There is no history of shortness of breath at rest, dyspnea on exertion, cough, or sputum production. There is no history of chest pain, coughing up of blood, or chest pain - brought on with deep respirations. There is no history of temperatures, chills, or infectious exposure. There is no history of night sweats, weight loss, or appetite change prior to the above events. No history of calf pains. No history of travel or trauma. REVIEW OF SYSTEMS: No history of nausea, vomiting, or diarrhea. No acute urinary symptoms. Rest of the review of systems is negative. ALLERGIES: ALLERGIES ARE TO LATEX AND PENICILLIN. SOCIAL HISTORY: Positive for former tobacco usage. No alcohol. FAMILY HISTORY: Positive for heart disease. MEDICATIONS: Home medications include Anoro, simvastatin, Toprol, metformin, Arnuity, Plavix, Ecotrin. PHYSICAL EXAMINATION: GENERAL: The patient appears comfortable this morning. He is not short of breath at rest. He is not using accessory muscles for breathing. VITALS: Temperature is 97.8, pulse is 88, respiratory rate 19, and blood pressure 129/71. Oxygen saturation on room air is 97-100%. HEENT: Normocephalic, atraumatic. No JVD. CARDIOVASCULAR: Positive S1, S2. No S3 gallop. LUNGS: Clear bilaterally. EXTREMITIES: No clubbing, cyanosis, or edema. Calves are nontender to palpation. GI: Abdomen is soft, nontender, and nondistended. Bowel sounds are positive. SKIN: No acute rash. NEUROLOGIC: Exam limited at the present time. PERTINENT LABORATORY DATA: Chest x-ray was done on 11/29/2018 and reviewed. There is a very small right pleural effusion noted. The patient is status post partial right lower lobe lobectomy. CAT scan of the abdomen and pelvis was also done. On the CAT scan, there is a very small, possibly loculated right pleural effusion. CBC: White count 30.3K, hemoglobin 10, hematocrit 29.9, platelets of 172,000. D-dimer is negative at 217. Complete Metabolic Profile: Glucose 225. Rest of the metabolic profile is within normal limits. IMPRESSION: 1. Near syncope. 2. Extensive coronary artery disease. 3. Carotid artery disease, status post left carotid stent. 4. Very small right pleural effusion. 5. Status post partial right lower lobe lobectomy. 6. History of small-cell lung cancer. PLAN: The patient presented to [facility] - originally on 11/29/2018 - with a near syncopal episode. Again, the patient had just come in from outdoors and was sitting in a chair. He then felt very dizzy and "clammy." He was then transferred to [facility] for additional evaluation. I did review the chest x-ray and CAT scan of the abdomen. There is a very small, possibly loculated right pleural effusion noted. This pleural effusion is most likely postoperative. Again, the patient is status post partial right lower lobe lobectomy in 08/2018. At this point in time, the patient offers absolutely NO pulmonary symptoms. In addition, his lungs are clear. Oxygen saturation on room air is 97-100%. At this point in time, no additional pulmonary intervention is needed or warranted. In addition, the patient is on Plavix. However, I certainly would monitor this small effusion as an outpatient. I did give my number/information to the patient for a followup appointment - as an outpatient. He fully agrees. Again, at this point in time, the patient is completely asymptomatic. The very small right pleural effusion, again, is most likely secondary to postoperative changes. Hopefully, the patient will follow up with me in the office - as an outpatient. Thank you very much for this pulmonary consultation. Truman Arnold MD [facility] # [id number] DADA
[2018-12-01 16:36] VITALS: RESP 20
[2018-12-02 00:51] VITALS: O2SAT 100
[2018-12-02] MEDS: Aztreonam 2 Gm in NS 100mL 100 ML IVPB SCH (05:25)
[2018-12-02] MEDS: metroNIDAZOLE IV 500 mg/100 ml 500 MG/100 ML BAG IVPB SCH (05:26)
[2018-12-02 06:42] LABS: HEMOGLOBIN 9.7 g/dL (14.0-18.0); MEAN CELL VOLUME 94.7 fl (80.0-105.0); MEAN CORPUSCULAR HGB CONC 33.8 g/dl (31.0-37.0); MEAN PLATELET VOLUME 9.9 fl (7.0-11.0); RBC 3.03 10^6/uL (3.5-6.1); RED CELL DISTRIBUTION WIDTH 14.4 % (11.5-14.5); WHITE BLOOD COUNT 14.1 10^3/uL (4.5-11.0)
[2018-12-02 06:57] LABS: ALB/GLOB RATIO 1.4 (1.1-1.8); ALBUMIN 3.5 g/dL (3.0-4.8); ALT/SGPT 20 U/L (7-56); AST/SGOT 13 U/L (17-59); BLOOD UREA NITROGEN 15 mg/dL (7-21); CALCIUM 8.5 mg/dL (8.4-10.5); GFR NON-AFRICAN AMERICAN > 60
[2018-12-02 07:12] VITALS: TEMP 98
--- NOTE | 2018-12-02 07:52 | PN ---
DATE: 12/01/2018 SUBJECTIVE: The patient is seen lying in bed on remote telemetry. He is comfortable. He has had no recurrent lightheadedness. CT abdomen reportedly showed evidence of possible enteritis and he is on antibiotic therapy at the present time. He remains afebrile. PHYSICAL EXAMINATION: GENERAL: He is a ill-appearing middle-aged man. VITAL SIGNS: Blood pressure 129/70 with a pulse of 110 in sinus,with PVCs noted, respirations 14. He is afebrile. HEENT: Chemotherapy related alopecia noted. NECK: No JVD. HEART: PMI in normal position. No pathological gallops noted. CHEST: Few scattered rhonchi heard. ABDOMEN: Soft, nontender with normal bowel sounds. EXTREMITIES: No edema. DIAGNOSTIC DATA: Potassium 5.0, BUN creatinine of 14 and 0.6, glucose is 225. White count 30.3, hemoglobin and hematocrit 10.0, and 29.9 with platelet count 172,000. Echocardiogram was reviewed revealing mild concentric LVH with normal LV size and systolic function. Carotid ultrasound revealed evidence of mild to moderate proximal right ICA stenosis. CURRENT MEDICATIONS: His current medications include Azactam, Ecotrin, Flagyl, subcutaneous heparin, insulin, Lipitor, Plavix, Toprol-XL, and vancomycin. IMPRESSION: 1. Recent near syncope which appears most consistent with vasovagal event. 2. Known coronary artery disease, status post prior bypass surgery. 3. Status post lobectomy for lung cancer with recent completion of chemotherapy. 4. Apparent enteritis. RECOMMENDATIONS: His current cardiac medications should continue. Maintenance of adequate hydration was advised. No further cardiac workup is planned at the present time. We will be happy to follow as needed. Claudy Kevin MD MTDD
[2018-12-02] MEDS: Insulin Lispro (humaLOG) LOW Coverage SC SCH ×2 (08:35→11:46)
[2018-12-02] MEDS: Vancomycin 1gm in NS 250ml 1 GM/250 ML BAG IVPB SCH (10:05)
[2018-12-02] MEDS: Magnesium Oxide 400 mg Tab UD PO SCH (10:05)
[2018-12-02] MEDS: Metoprolol Succinate 25 mg XL Tab PO SCH (10:05)
[2018-12-02 10:12] VITALS: BP 120/60
--- NOTE | 2018-12-02 10:57 | CP.PCM.PN ---
<Sukh Pierre - Last Filed: 12/02/18 13:33> Subjective - Date & Time of Evaluation Date of Evaluation: 12/02/18 Time of Evaluation: 07:20 - Subjective Subjective: Infectious disease progress note: Pt seen and examined at bedside. No acute events overnight. Denies any further near syncopal episodes. 12 Point ROS neg other than stated above Objective - Vital Signs/Intake and Output Vital Signs (last 24 hours): Temp Pulse Resp BP Pulse Ox 98.0 F 83 20 120/60 100 12/02/18 06:00 12/02/18 10:05 12/02/18 06:00 12/02/18 10:05 12/02/18 06:00 Intake and Output: 12/02/18 12/02/18 06:59 18:59 Intake Total 400 Output Total 0 Balance 400 - Medications Medications: Current Medications Aspirin (Ecotrin) 81 mg PO QAM [facility] Last Admin: 12/02/18 10:04 Dose: 81 mg Atorvastatin Calcium (Lipitor) 40 mg PO [facility] Last Admin: 12/01/18 21:10 Dose: 40 mg Clopidogrel Bisulfate (Plavix) 75 mg PO QAM [facility] Last Admin: 12/02/18 10:05 Dose: 75 mg Docusate Sodium (Colace) 100 mg PO BID [facility] Last Admin: 12/02/18 10:04 Dose: 100 mg Heparin Sodium (Porcine) (Heparin) 5,000 units SC Q8H [facility]; Protocol Last Admin: 12/02/18 05:26 Dose: 5,000 units Aztreonam (Azactam 2 Gm) 100 mls @ 100 mls/hr IVPB Q8 [facility]; Protocol Stop: 12/07/18 07:01 Last Admin: 12/02/18 05:25 Dose: 100 mls/hr Vancomycin HCl (Vancomycin 1gm) 1 gm in 250 mls @ 167 mls/hr IVPB Q12 [facility]; Protocol Stop: 12/05/18 10:00 Last Admin: 12/02/18 10:05 Dose: 167 mls/hr Metronidazole (Flagyl) 500 mg in 100 mls @ 100 mls/hr IVPB Q8 [facility]; Protocol Last Admin: 12/02/18 05:26 Dose: 100 mls/hr Insulin Human Lispro (Humalog Low) 0 units SC ACHS [facility]; Protocol Last Admin: 12/02/18 08:35 Dose: 3 unit Magnesium Oxide (Mag-Ox) 400 mg PO DAILY [facility] Last Admin: 12/02/18 10:05 Dose: 400 mg Metoprolol Succinate (Toprol Xl) 25 mg PO DAILY [facility] Last Admin: 12/02/18 10:05 Dose: 25 mg - Labs Labs: 12/02/18 06:00 12/02/18 06:00 PT 12.2 SECONDS (9.4-12.5) 11/29/18 19:08 INR 1.10 11/29/18 19:08 APTT 26.2 Seconds (26.9-38.3) L 11/29/18 19:08 - Constitutional Appears: No Acute Distress - Head Exam Head Exam: ATRAUMATIC, NORMOCEPHALIC - Eye Exam Eye Exam: EOMI - ENT Exam ENT Exam: Mucous Membranes Moist - Respiratory Exam Respiratory Exam: Clear to Ausculation Bilateral. absent: Rales, Wheezes - Cardiovascular Exam Cardiovascular Exam: REGULAR RHYTHM, +S1, +S2 - GI/Abdominal Exam GI & Abdominal Exam: Soft. absent: Tenderness - Extremities Exam Extremities Exam: absent: Calf Tenderness, Pedal Edema - Neurological Exam Neurological Exam: Alert, Awake, Oriented x3 - Skin Skin Exam: Dry, Warm Assessment and Plan - Assessment and Plan (Free Text) Assessment: 68-year-old male with past medical history of diabetes, hyper cholesterolemia, small cell lung cancer status post lobectomy in August 2018, with 4 rounds of chemotherapy most recently received last , CABG, and left carotid stent presented to the ED following a near syncopal episode. Found to have SIRS with marked leukocytosis. - WBC trending down, today 14 possibely 2/2 neulasta 5 days ago. - Continue with vancomycin and aztreonam Day 3, can d/c all abx upon discharge - CT abdomen and pelvis - small bowel enteritis, asymptomatic - Follow-up septic workup - blood culture neg thus far - Cont to monitor Case and plan was reviewed and discussed with Dr. Lacey <Rosales Lacey - Last Filed: 12/02/18 16:18> Objective - Vital Signs/Intake and Output Vital Signs (last 24 hours): Temp Pulse Resp BP Pulse Ox 98.0 F 97 H 20 120/60 100 12/02/18 06:00 12/02/18 14:00 12/02/18 06:00 12/02/18 10:05 12/02/18 06:00 Intake and Output: 12/02/18 12/02/18 06:59 18:59 Intake Total 400 Output Total 0 Balance 400 - Medications Medications: Current Medications Aspirin (Ecotrin) 81 mg PO QAM [facility] Last Admin: 12/02/18 10:04 Dose: 81 mg Atorvastatin Calcium (Lipitor) 40 mg PO HS [facility] Last Admin: 12/01/18 21:10 Dose: 40 mg Clopidogrel Bisulfate (Plavix) 75 mg PO QAM [facility] Last Admin: 12/02/18 10:05 Dose: 75 mg Docusate Sodium (Colace) 100 mg PO BID [facility] Last Admin: 12/02/18 10:04 Dose: 100 mg Heparin Sodium (Porcine) (Heparin) 5,000 units SC Q8H [facility]; Protocol Last Admin: 12/02/18 05:26 Dose: 5,000 units Aztreonam (Azactam 2 Gm) 100 mls @ 100 mls/hr IVPB Q8 [facility]; Protocol Stop: 12/07/18 07:01 Last Admin: 12/02/18 05:25 Dose: 100 mls/hr Vancomycin HCl (Vancomycin 1gm) 1 gm in 250 mls @ 167 mls/hr IVPB Q12 [facility]; Protocol Stop: 12/05/18 10:00 Last Admin: 12/02/18 10:05 Dose: 167 mls/hr Metronidazole (Flagyl) 500 mg in 100 mls @ 100 mls/hr IVPB Q8 [facility]; Protocol Last Admin: 12/02/18 05:26 Dose: 100 mls/hr Insulin Human Lispro (Humalog Low) 0 units SC ACHS [facility]; Protocol Last Admin: 12/02/18 11:46 Dose: 1 unit Magnesium Oxide (Mag-Ox) 400 mg PO DAILY [facility] Last Admin: 12/02/18 10:05 Dose: 400 mg Metoprolol Succinate (Toprol Xl) 25 mg PO DAILY [facility] Last Admin: 12/02/18 10:05 Dose: 25 mg - Labs Labs: 12/02/18 06:00 12/02/18 06:00 PT 12.2 SECONDS (9.4-12.5) 11/29/18 19:08 INR 1.10 11/29/18 19:08 APTT 26.2 Seconds (26.9-38.3) L 11/29/18 19:08 Assessment and Plan - Assessment and Plan (Free Text) Assessment: Infectious diseases Attending Physician Attestation Patient seen and examined, discussed with medical cash poster. I have reviewed the patient's history of present illness, past medical, social, personal and family histories, pertinent physical exam findings, course so far in this hospital admission, pertinent laboratory and imaging results. I agree with the above findings, assessment and plan. In addition, will d/c Aztreonam and Vancomycin - leukocytosis is probably from Neulasta. Enteritis as seen on CT A/P is mild, probably viral and currently patient does not have abdominal pain, no diarrhea, no nausea or vomiting. Can observe off antibiotics and patient can follow up with PMD as outpatient.
--- NOTE | 2018-12-02 13:38 | CP.PCM.DIS ---
<Vida Branham - Last Filed: 12/02/18 13:28> Provider - Provider Date of Admission: 11/30/18 13:39 Attending physician: Malik Friedman MD Primary care physician: Deo Ford MD Consults: 11/29/18 22:01 Consult [Physician Consult] Routine Comment: Consulting Provider: Benedict Gregorio Consulting Physician: Benedict Gregorio Reason for Consult: high WCC 11/29/18 22:02 Consult [Physician Consult] Routine Comment: Consulting Provider: Claudy Kevin Consulting Physician: Claudy Kevin Reason for Consult: syncope 11/30/18 13:06 Social Work Referral Routine Comment: d/c plan Physician Instructions: Reason For Exam: assess 11/30/18 13:52 Diabetic Education Referral Routine Comment: blood sugar 192 on admission to ed Physician Instructions: Reason For Exam: assess 12/01/18 09:12 Pulmonology Consult Routine Comment: Consulting Provider: Truman Arnold Consulting Physician: Truman Arnold Reason for Consult: small R effusion possibly loculated as per CT Time Spent in preparation of Discharge (in minutes): 45 Hospital Course - Lab Results Lab Results: Micro Results 11/29/18 22:30 Blood-Venous Blood Culture - Preliminary NO GROWTH AFTER 48 HOURS 11/29/18 22:10 Blood-Venous Blood Culture - Preliminary NO GROWTH AFTER 48 HOURS 11/30/18 11:00 Urine,Clean Catch Urine Culture - Final No Growth (<1,000 CFU/ML) Most Recent Lab Values WBC 14.1 10^3/uL (4.5-11.0) H D 12/02/18 06:00 RBC 3.03 10^6/uL (3.5-6.1) L 12/02/18 06:00 Hgb 9.7 g/dL (14.0-18.0) L 12/02/18 06:00 Hct 28.7 % (42.0-52.0) L 12/02/18 06:00 MCV 94.7 fl (80.0-105.0) 12/02/18 06:00 MCH 32.0 pg (25.0-35.0) 12/02/18 06:00 MCHC 33.8 g/dl (31.0-37.0) 12/02/18 06:00 RDW 14.4 % (11.5-14.5) 12/02/18 06:00 Plt Count 129 10^3/uL (120.0-450.0) 12/02/18 06:00 MPV 9.9 fl (7.0-11.0) 12/02/18 06:00 Neut % (Auto) 96.7 % (50.0-68.0) H 11/29/18 19:08 Lymph % (Auto) 3.0 % (22.0-35.0) L 11/29/18 19:08 [place] % (Auto) 0.3 % (1.0-6.0) L 11/29/18 19:08 Eos % (Auto) 0.0 % (1.5-5.0) L 11/29/18 19:08 Baso % (Auto) 0.0 % (0.0-3.0) 11/29/18 19:08 Lymph # (Auto) 1.6 (1.2-3.4) 11/29/18 19:08 [place] # (Auto) 0.2 (0.1-0.6) 11/29/18 19:08 Eos # (Auto) 0.0 (0.0-0.7) 11/29/18 19:08 Baso # (Auto) 0.02 K/mm3 (0.0-2.0) 11/29/18 19:08 Absolute Neuts (auto) 50.77 (1.4-6.5) H 11/29/18 19:08 Neutrophils % (Manual) 95 % (50.0-70.0) H 11/29/18 19:08 Band Neutrophils % 2 % (0-2) 11/29/18 19:08 Lymphocytes % (Manual) 3 % (22.0-35.0) L 11/29/18 19:08 Monocytes % (Manual) TEST NOT PERFORMED 11/29/18 19:08 Toxic Granulation 2+ 11/29/18 19:08 Platelet Evaluation Normal (NORMAL) 11/29/18 19:08 Hypochromasia 2+ 11/29/18 19:08 Target Cells Slight 11/29/18 19:08 Rouleaux 2+ 11/29/18 19:08 Retic Count 0.46 % (0.5-1.5) L 11/30/18 13:38 PT 12.2 SECONDS (9.4-12.5) 11/29/18 19:08 INR 1.10 11/29/18 19:08 APTT 26.2 Seconds (26.9-38.3) L 11/29/18 19:08 D-Dimer, Quantitative 217 ng/mlDDU (0-243) 11/29/18 21:30 Sodium 136 mmol/L (132-148) 12/02/18 06:00 Potassium 4.5 mmol/L (3.6-5.0) 12/02/18 06:00 Chloride 107 mmol/L (98-107) 12/02/18 06:00 Carbon Dioxide 25 mmol/L (21-33) 12/02/18 06:00 Anion Gap 9 (10-20) L 12/02/18 06:00 BUN 15 mg/dL (7-21) 12/02/18 06:00 Creatinine 0.5 mg/dl (0.8-1.5) L 12/02/18 06:00 Est GFR ( Amer) > 60 12/02/18 06:00 Est GFR (Non-Af Amer) > 60 12/02/18 06:00 POC Glucose (mg/dL) 191 mg/dL (65-110) H 12/02/18 11:15 Random Glucose 161 mg/dL (70-110) H 12/02/18 06:00 Hemoglobin A1c 7.4 % (4.2-6.5) H 11/30/18 07:00 Calcium 8.5 mg/dL (8.4-10.5) 12/02/18 06:00 Phosphorus 3.5 mg/dL (2.5-4.5) 11/30/18 07:00 Magnesium 1.6 mg/dL (1.7-2.2) L 11/30/18 07:00 Iron 234 ug/dL (45-180) H 11/30/18 13:38 TIBC 277 ug/dL (261-462) 11/30/18 13:38 % Saturation 85 % (20-55) H 11/30/18 13:38 Transferrin 211.61 mg/dL (206-381) 11/30/18 13:38 Ferritin 247.0 ng/mL 11/30/18 13:38 Total Bilirubin 0.5 mg/dL (0.2-1.3) 12/02/18 06:00 AST 13 U/L (17-59) L D 12/02/18 06:00 ALT 20 U/L (7-56) 12/02/18 06:00 Alkaline Phosphatase 84 U/L (38-126) 12/02/18 06:00 Lactate Dehydrogenase 375 U/L (333-699) 11/29/18 19:08 Total Creatine Kinase 23 U/L (35-230) L 11/29/18 19:08 Troponin I < 0.01 ng/mL 11/29/18 22:25 NT-Pro-B Natriuret Pep 316 pg/mL (0-450) 11/29/18 19:08 Total Protein 6.0 g/dL (5.8-8.3) 12/02/18 06:00 Albumin 3.5 g/dL (3.0-4.8) 12/02/18 06:00 Globulin 2.5 gm/dL 12/02/18 06:00 Albumin/Globulin Ratio 1.4 (1.1-1.8) 12/02/18 06:00 Triglycerides 72 mg/dL (35-160) 11/30/18 07:00 Cholesterol 96 mg/dL (130-200) L 11/30/18 07:00 LDL Cholesterol Direct 52 mg/dL (0-129) 11/30/18 07:00 HDL Cholesterol 41 mg/dL (29-60) 11/30/18 07:00 Vitamin B12 > 1000 pg/mL (239-931) H 11/30/18 07:00 Folate 7.4 ng/mL 11/30/18 07:00 Free T4 0.98 ng/dL (0.78-2.19) 11/30/18 07:00 TSH 3rd Generation 0.63 mIU/mL (0.46-4.68) 11/30/18 07:00 Urine Color Yellow (YELLOW) 11/29/18 20:35 Urine Appearance Clear (CLEAR) 11/29/18 20:35 Urine pH 6.0 (4.7-8.0) 11/29/18 20:35 Ur Specific [place] >= 1.030 (1.005-1.035) 11/29/18 20:35 Urine Protein Trace mg/dL (<30 mg/dL) H 11/29/18 20:35 Urine Glucose (UA) 250 mg/dL (NEGATIVE) H 11/29/18 20:35 Urine Ketones Negative mg/dL (NEGATIVE) 11/29/18 20:35 Urine Blood Negative (NEGATIVE) 11/29/18 20:35 Urine Nitrate Negative (NEGATIVE) 11/29/18 20:35 Urine Bilirubin Negative (NEGATIVE) 11/29/18 20:35 Urine Urobilinogen 0.2 E.U./dL (<1 E.U./dL) 11/29/18 20:35 Ur Leukocyte Esterase Negative Cleve/uL (NEGATIVE) 11/29/18 20:35 Urine RBC TEST NOT PERFORMED 11/29/18 20:35 Urine WBC 2 - 5 /hpf (0-6) 11/29/18 20:35 Ur Epithelial Cells 6 - 8 /hpf (0-5) H 11/29/18 20:35 Influenza Typ A,B (EIA) Negative for flu a/b (NEGATIVE) 11/29/18 19:08 - Hospital Course Hospital Course: Upon Admission 68yo male PMHx CABG, DM2, HLD, 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 Patient states that that at the time of the episode he was sitting in a chair when he started feeling very lightheaded, diaphoretic, and with cold sweats. He denied any LOC, fall, seizure-like activity. His checked the blood pressure at the time which was 66/33. At this time she called the ED. Patient denied any headache, dizziness, chest pain, palpitations, SOB, cough, abd pain, nausea, vom iting, bowel/bladder complaints, pain/swelling in his legs b/l. Hospital Course Patient admitted to remote [facility] for further management. Patient's head CT showed generalized parenchymal atrophy noted as demonstrated by symmetrical dilatation of ventricles and sulci and chronic periventricular and subcortical microvascular disease and u/s carotids revealed 40-50% proximal right ICA stenosis and 20-39% proximal left ICA stenosis. Patient's U/S LE were done in the ER which were negative for DVT. Cardio was consulted who deemed near- syncopal episode was likely secondary to dehydration. ID was consulted in light of elevated WBC. Patient's UA and flu were negative. CXR revealed small R effusions with mild basilar atelectasis. CT abd/pelvis also revealed small bowel enteritis and constipation. Patient is asymptomatic at this time. Patient was started on IV abx which were de-escalated as WBC trended down. I spoke to patient's daughter Katia [phone] for more information. Patient was diagnosed with lung ca in July 2018 and had Right lower lobe lobectomy in August 12, 2018. Patient had chemo port placed Sep 11, 2018. Since then he has received 4 total doses of chemotherapy. Regimen is spread over 3 days [Day 1: Cisplatin and Etoposide, Day 2: Etoposide, Day 3: Etoposide and 24hrs of Neulasta. Patient's last cycle of chemotherapy was 2 days prior to presentation in the ER and his last dose of Neulasta was on Friday11/27/18. Blood and urine cultures were negative. Echo was ordered that was unremarkable. As per pulm, patient can follow up outpatient for small R loculated effusion. Continued home meds ASA ,Plavix, lipitor, and toprol for CAD and HLD. Patient's Oncologist Dr. Johnson [phone] was updated and aware of patient's hospital course. Patient's daughter was spoken to and it was decided he would be discharged home. On day of discharge patient was deemed medically optimized for discharge home. Discharge Instructions You are being discharged from [facility] Please resume all home medications as prescribed by your PMD Dr. Ford. Please follow up with your PMD Dr. Ford within 7-10 days. Please follow up with your Oncologist Dr. Johnson within 5-7 days. Please follow up with Pulmonology Dr. Arnold within 10-14 days. Please follow up with Cardiology Dr. Kevin within 10-14 days. If symptoms return please visit your nearest Emergency Room. Instructions discussed in detail with patient who understands and agrees. Please note this is a discharge summary. For full hospital course please refer to EMR. Discharge Exam - Head Exam Head Exam: ATRAUMATIC, NORMOCEPHALIC - Additional Findings Additional findings: - Constitutional Appears: Non-toxic, No Acute Distress - Head Exam Head Exam: ATRAUMATIC, NORMAL INSPECTION, NORMOCEPHALIC - Eye Exam Eye Exam: EOMI, Normal appearance. absent: Conjunctival injection, Scleral icterus - ENT Exam ENT Exam: Mucous Membranes Moist - Neck Exam Neck exam: Negative for: Lymphadenopathy - Respiratory Exam Respiratory Exam: Clear to Auscultation Bilateral, NORMAL BREATHING PATTERN. absent: Accessory Muscle Use, Rales, Rhonchi, Wheezes, Respiratory Distress Additional comments: port in L upper chest wall - Cardiovascular Exam Cardiovascular Exam: REGULAR RHYTHM, +S1, +S2 - GI/Abdominal Exam GI & Abdominal Exam: Normal Bowel Sounds, Soft. absent: Firm, Guarding, Rigid, Tenderness - Rectal Exam Rectal Exam: Deferred - Extremities Exam Extremities exam: Positive for: normal inspection, pedal pulses present. Negative for: pedal edema, tenderness - Back Exam Back exam: NORMAL INSPECTION. absent: rash noted - Neurological Exam Neurological exam: Alert, CN II-XII Intact, Oriented x3 - Psychiatric Exam Psychiatric exam: Normal Affect, Normal Mood - Skin Skin Exam: Dry, Intact, Normal Color Discharge Plan - Follow Up Plan Condition: STABLE Disposition: HOME/ ROUTINE Instructions: Near Fainting (DC) Additional Instructions: You are being discharged from [facility] Please resume all home medications as prescribed by your PMD Dr. Ford. Please follow up with your PMD Dr. Ford within 7-10 days. Please follow up with your Oncologist Dr. Johnson within 5-7 days. Please follow up with Pulmonology Dr. Arnold within 10-14 days. Please follow up with Cardiology Dr. Kevin within 10-14 days. If symptoms return please visit your nearest Emergency Room. Referrals: Deo Ford MD [Primary Care Provider] - Claudy Kevin MD [Staff Provider] - Truman Arnold MD [Staff Provider] - <Malik Friedman - Last Filed: 12/02/18 19:14> Provider - Provider Date of Admission: 11/30/18 13:39 Attending physician: Malik Friedman MD Primary care physician: Deo Ford MD Consults: 11/29/18 22:01 Consult [Physician Consult] Routine Comment: Consulting Provider: Benedict Gregorio Consulting Physician: Benedict Gregorio Reason for Consult: high [facility] 11/29/18 22:02 Consult [Physician Consult] Routine Comment: Consulting Provider: Claudy Kevin Consulting Physician: Claudy Kevin Reason for Consult: syncope 11/30/18 13:06 Social Work Referral Routine Comment: d/c plan Physician Instructions: Reason For Exam: assess 11/30/18 13:52 Diabetic Education Referral Routine Comment: blood sugar 192 on admission to ed Physician Instructions: Reason For Exam: assess 12/01/18 09:12 Pulmonology Consult Routine Comment: Consulting Provider: Truman Arnold Consulting Physician: Truman Arnold Reason for Consult: small R effusion possibly loculated as per CT Hospital Course - Lab Results Lab Results: Micro Results 11/29/18 22:30 Blood-Venous Blood Culture - Preliminary NO GROWTH AFTER 48 HOURS 11/29/18 22:10 Blood-Venous Blood Culture - Preliminary NO GROWTH AFTER 48 HOURS 11/30/18 11:00 Urine,Clean Catch Urine Culture - Final No Growth (<1,000 CFU/ML) Most Recent Lab Values WBC 14.1 10^3/uL (4.5-11.0) H D 12/02/18 06:00 RBC 3.03 10^6/uL (3.5-6.1) L 12/02/18 06:00 Hgb 9.7 g/dL (14.0-18.0) L 12/02/18 06:00 Hct 28.7 % (42.0-52.0) L 12/02/18 06:00 MCV 94.7 fl (80.0-105.0) 12/02/18 06:00 MCH 32.0 pg (25.0-35.0) 12/02/18 06:00 MCHC 33.8 g/dl (31.0-37.0) 12/02/18 06:00 RDW 14.4 % (11.5-14.5) 12/02/18 06:00 Plt Count 129 10^3/uL (120.0-450.0) 12/02/18 06:00 MPV 9.9 fl (7.0-11.0) 12/02/18 06:00 Neut % (Auto) 96.7 % (50.0-68.0) H 11/29/18 19:08 Lymph % (Auto) 3.0 % (22.0-35.0) L 01/27/19 19:08 [place] % (Auto) 0.3 % (1.0-6.0) L 11/29/18 19:08 Eos % (Auto) 0.0 % (1.5-5.0) L 11/29/18 19:08 Baso % (Auto) 0.0 % (0.0-3.0) 11/29/18 19:08 Lymph # (Auto) 1.6 (1.2-3.4) 11/29/18 19:08 [place] # (Auto) 0.2 (0.1-0.6) 11/29/18 19:08 Eos # (Auto) 0.0 (0.0-0.7) 11/29/18 19:08 Baso # (Auto) 0.02 K/mm3 (0.0-2.0) 11/29/18 19:08 Absolute Neuts (auto) 50.77 (1.4-6.5) H 11/29/18 19:08 Neutrophils % (Manual) 95 % (50.0-70.0) H 11/29/18 19:08 Band Neutrophils % 2 % (0-2) 11/29/18 19:08 Lymphocytes % (Manual) 3 % (22.0-35.0) L 11/29/18 19:08 Monocytes % (Manual) TEST NOT PERFORMED 11/29/18 19:08 Toxic Granulation 2+ 11/29/18 19:08 Platelet Evaluation Normal (NORMAL) 11/29/18 19:08 Hypochromasia 2+ 11/29/18 19:08 Target Cells Slight 11/29/18 19:08 Rouleaux 2+ 11/29/18 19:08 Retic Count 0.46 % (0.5-1.5) L 11/30/18 13:38 PT 12.2 SECONDS (9.4-12.5) 11/29/18 19:08 INR 1.10 11/29/18 19:08 APTT 26.2 Seconds (26.9-38.3) L 11/29/18 19:08 D-Dimer, Quantitative 217 ng/mlDDU (0-243) 11/29/18 21:30 Sodium 136 mmol/L (132-148) 12/02/18 06:00 Potassium 4.5 mmol/L (3.6-5.0) 12/02/18 06:00 Chloride 107 mmol/L (98-107) 12/02/18 06:00 Carbon Dioxide 25 mmol/L (21-33) 12/02/18 06:00 Anion Gap 9 (10-20) L 12/02/18 06:00 BUN 15 mg/dL (7-21) 12/02/18 06:00 Creatinine 0.5 mg/dl (0.8-1.5) L 12/02/18 06:00 Est GFR ( Amer) > 60 12/02/18 06:00 Est GFR (Non-Af Amer) > 60 12/02/18 06:00 POC Glucose (mg/dL) 191 mg/dL (65-110) H 12/02/18 11:15 Random Glucose 161 mg/dL (70-110) H 12/02/18 06:00 Hemoglobin A1c 7.4 % (4.2-6.5) H 11/30/18 07:00 Calcium 8.5 mg/dL (8.4-10.5) 12/02/18 06:00 Phosphorus 3.5 mg/dL (2.5-4.5) 11/30/18 07:00 Magnesium 1.6 mg/dL (1.7-2.2) L 11/30/18 07:00 Iron 234 ug/dL (45-180) H 11/30/18 13:38 TIBC 277 ug/dL (261-462) 11/30/18 13:38 % Saturation 85 % (20-55) H 11/30/18 13:38 Transferrin 211.61 mg/dL (206-381) 11/30/18 13:38 Ferritin 247.0 ng/mL 11/30/18 13:38 Total Bilirubin 0.5 mg/dL (0.2-1.3) 12/02/18 06:00 AST 13 U/L (17-59) L D 12/02/18 06:00 ALT 20 U/L (7-56) 12/02/18 06:00 Alkaline Phosphatase 84 U/L (38-126) 12/02/18 06:00 Lactate Dehydrogenase 375 U/L (333-699) 11/29/18 19:08 Total Creatine Kinase 23 U/L (35-230) L 11/29/18 19:08 Troponin I < 0.01 ng/mL 11/29/18 22:25 NT-Pro-B Natriuret Pep 316 pg/mL (0-450) 11/29/18 19:08 Total Protein 6.0 g/dL (5.8-8.3) 12/02/18 06:00 Albumin 3.5 g/dL (3.0-4.8) 12/02/18 06:00 Globulin 2.5 gm/dL 12/02/18 06:00 Albumin/Globulin Ratio 1.4 (1.1-1.8) 12/02/18 06:00 Triglycerides 72 mg/dL (35-160) 11/30/18 07:00 Cholesterol 96 mg/dL (130-200) L 11/30/18 07:00 LDL Cholesterol Direct 52 mg/dL (0-129) 11/30/18 07:00 HDL Cholesterol 41 mg/dL (29-60) 11/30/18 07:00 Vitamin B12 > 1000 pg/mL (239-931) H 11/30/18 07:00 Folate 7.4 ng/mL 11/30/18 07:00 Free T4 0.98 ng/dL (0.78-2.19) 11/30/18 07:00 TSH 3rd Generation 0.63 mIU/mL (0.46-4.68) 11/30/18 07:00 Urine Color Yellow (YELLOW) 11/29/18 20:35 Urine Appearance Clear (CLEAR) 11/29/18 20:35 Urine pH 6.0 (4.7-8.0) 11/29/18 20:35 Ur Specific [place] >= 1.030 (1.005-1.035) 11/29/18 20:35 Urine Protein Trace mg/dL (<30 mg/dL) H 11/29/18 20:35 Urine Glucose (UA) 250 mg/dL (NEGATIVE) H 11/29/18 20:35 Urine Ketones Negative mg/dL (NEGATIVE) 11/29/18 20:35 Urine Blood Negative (NEGATIVE) 11/29/18 20:35 Urine Nitrate Negative (NEGATIVE) 11/29/18 20:35 Urine Bilirubin Negative (NEGATIVE) 11/29/18 20:35 Urine Urobilinogen 0.2 E.U./dL (<1 E.U./dL) 11/29/18 20:35 Ur Leukocyte Esterase Negative Cleve/uL (NEGATIVE) 11/29/18 20:35 Urine RBC TEST NOT PERFORMED 11/29/18 20:35 Urine WBC 2 - 5 /hpf (0-6) 11/29/18 20:35 Ur Epithelial Cells 6 - 8 /hpf (0-5) H 11/29/18 20:35 Influenza Typ A,B (EIA) Negative for flu a/b (NEGATIVE) 11/29/18 19:08 - Hospital Course Hospital Course: Pt seen and examined by me. I have reviewed the note of the mobile paramedical examiner and I agree with it. I have discussed the assessment and plan with the resident. I have reviewed the medications and the last labs. Pt with dizziness and has improved. Leucocytosis has improved. CAD being treated with ASA and Plavix. On lipitor for dyslipidemia. Pt with cultures that are negative. He will be discharged and f/u with oncology.
[2018-12-02 14:03] VITALS: PULSE 97
== END 2018-12-02 15:30 | disposition home or self-care (01) | DRG 312 ==
LOC: ED 17:38 → ERH 21:25 → OBSVTOIN 11-30 13:39 → 3RNO 11-30 14:46
PROVIDERS: ADMIT Internal Medicine Nephrology; ATTEND Internal Medicine Nephrology
DX: R55 Syncope and collapse (principal); C34.90 Malignant neoplasm of unspecified part of unspecified bronchus or lung; J90 Pleural effusion, not elsewhere classified; R65.10 Systemic inflammatory response syndrome (SIRS) of non-infectious origin without acute organ dysfunction; E11.9 Type 2 diabetes mellitus without complications; I25.10 Atherosclerotic heart disease of native coronary artery without angina pectoris; K52.9 Noninfective gastroenteritis and colitis, unspecified; K59.00 Constipation, unspecified; D72.829 Elevated white blood cell count, unspecified; T45.8X5A Adverse effect of other primarily systemic and hematological agents, initial encounter; I65.23 Occlusion and stenosis of bilateral carotid arteries; E78.00 Pure hypercholesterolemia, unspecified; D64.9 Anemia, unspecified; R42 Dizziness and giddiness; Z90.2 Acquired absence of lung [part of]; Z79.02 Long term (current) use of antithrombotics/antiplatelets; Z79.82 Long term (current) use of aspirin; Z95.1 Presence of aortocoronary bypass graft; Z87.891 Personal history of nicotine dependence